=== PATIENT | male | born 1945 | race Caucasian/White ===

== ENCOUNTER 2017-06-24 07:35 | Outpatient (CLI) | payer MEDICARE ==
--- OUTSIDE RECORDS SUMMARY | 2017-06-24 07:38 | XMS | Clinical Summary ---
:1945 Author Organization [facility] Address [address] [place] [address] Phone Care Team Providers Name Role Phone Rancho Parekh Primary Care Provider tel Allergies No Known Allergies Current Medications Prescription Sig. Disp. Refills Start Date End Date Status pantoprazole (PROTONIX) 10/30/2016 Active 40 MG EC tablet valsartan (DIOVAN) 160 MG 11/02/2016 Active tablet JANUVIA 100 mg tablet 10/15/2016 Active carvedilol (COREG) 25 MG 11/02/2016 Active tablet metFORMIN (GLUCOPHAGE) Take 1,000 mg by Active 1,000 mg tablet mouth 2 (two) times a day with meals. aspirin (ECOTRIN) 81 MG Take 81 mg by mouth Active enteric coated tablet daily. HYDROcodone-acetaminophen Take by mouth every Active (HYCET) 2.5-108.3 mg/5 mL 6 (six) hours as solution needed for moderate pain. acetaminophen (TYLENOL) Take 500 mg by Active 500 MG tablet mouth every 6 (six) hours as needed for mild pain. Active Problems Problem Noted Date H/O esophagectomy 02/12/2017 Acute postoperative pain 02/12/2017 Postoperative anemia due to acute blood loss 02/12/2017 Esophageal cancer 02/11/2017 Encounters Date Type Specialty Care Team Description 03/26/2017 Office Visit Cardiothoracic Surgery Cuco Chaidez, Surgery follow-up MD examination (Primary Dx) from Last 3 Months Family History Medical History Relation Name Comments Esophageal cancer Brother Lung cancer Brother Heart disease Mother Relation Name Status Comments Brother Brother Mother Social History Tobacco Use Types Packs/Day Years Used Date Former Smoker Cigarettes 2 42 Quit: 11/07/2001 Smokeless Tobacco: Former User Quit: 10/24/2016 Alcohol Use Drinks/Week oz/Week Comments No Sex Assigned at Date Recorded Not on file Last Filed Vital Signs Vital Sign Reading Time Taken Blood Pressure 143/68 03/26/2017 11:13 AM CDT Pulse 65 03/26/2017 11:13 AM CDT Temperature 37.1 C (98.7 F) 03/26/2017 11:13 AM CDT Respiratory Rate 18 03/26/2017 11:13 AM CDT Oxygen Saturation 97% 03/26/2017 11:13 AM CDT Inhaled Oxygen Concentration - - Weight 100 kg (220 lb 8 oz) 03/26/2017 11:13 AM CDT Height 182.9 cm (6') 03/26/2017 11:13 AM CDT Body Mass Index 29.91 03/26/2017 11:13 AM CDT Plan of Treatment Health Maintenance Due Date Last Done Comments FOOT EXAM 1954 OPHTHALMOLOGY EXAM 1954 COLONOSCOPY 1994 ZOSTER VACCINE 2004 PNEUMOCOCCAL POLYSACCHARIDE VACCINE AGE 65 AND OVER 2009 PNEUMOCOCCAL-13 2009 INFLUENZA VACCINE 04/30/2017 Implants Implanted Type Area Hoop Rolls Operator Device Expiration Model / Identifier Date Serial / Lot Matrix Hmstc Floseal 10ml W/ Humn F2 - [id number] Surgical N/A: N/A VILLATORO 07/30/2018 [id number] / Implanted:Qty: 1 on 02/11/2017 by Cuco Chaidez MD Implants; BIOSCIENCE / Expanders; Extenders; Surgical Wires Chamber Sgl Saud Dry Suct 1wy Vlv Adlt Pedi - [id number] Surgical N/A: N/A TELEFLEX MEDICAL S 1100 [id number] / Implanted:02/11/2017 (Quantity not on file) Implants; / Expanders; Extenders; Surgical Wires Results Not on filefrom Last 3 Months Insurance Payer Benefit Plan / Group Subscriber ID Type Phone Address MEDICARE MEDICARE PART A AND B [id number] Medicare [place], [place] A[employer]NA [employer] OF [id number] Source MDx Home: [id number] [facility] [phone] [place] [phone]
[2017-06-24 08:06] LABS: Calc. Creatinine Clearance 0 mL/min (70-130); Estimated GFR-MDRD Greater than 90
--- NOTE | 2017-06-24 08:51 | CT ---
CT OF THE CHEST WITH CONTRAST: Date: 06/24/17 COMPARISON: None. HISTORY: Esophageal cancer, status post resection and chemotherapy. TECHNIQUE: Multiple contiguous axial images were obtained in a CT of the chest with contrast. Coronal reformats were performed. FINDINGS: Postsurgical changes are seen from distal esophageal resection and gastric pull-up. No hilar or medi astinal lymphadenopathy are seen. The heart is normal in size without focal cardiac abnormality. There are tree-in-bud opacities in the left lower lobe which may represent an infectious infiltrate or aspiration. No other nodules are seen. No pleural effusion or pneumothorax present. Degenerative changes are seen in the spine. No suspicious osseous lesions are identified. A hypodens ity in the left kidney likely represents a cyst. The other visualized subdiaphragmatic structures ar e unremarkable. The chest wall soft tissues are unremarkable. IMPRESSION: 1. Postsurgical changes from removal of the distal esophagus without evidence of recurrent or metas tatic disease. 2. There are areas of tree-in-bud opacity in the left lower lobe which may represent an acute infil trate or aspiration. POS: [facility]
[2017-06-24] MEDS ORDERED: Iopamidol 370 76% 100 ML VIAL ONE (13:41)
== END 2017-06-24 07:36 | disposition home or self-care (01) ==
LOC: CT 07:35
PROVIDERS: ATTEND Internal Medicine Hematology & Oncology
DX: C15.5 Malignant neoplasm of lower third of esophagus (principal); Z90.49 Acquired absence of other specified parts of digestive tract; R91.8 Other nonspecific abnormal finding of lung field; Z98.890 Other specified postprocedural states
CPT/HCPCS: 36415; 71260; 82565

== ENCOUNTER 2017-08-30 14:48 | Inpatient (IN) | payer MEDICARE ==
[2017-08-30 15:27] LABS: Hematocrit 38.7 % (42.0-52.0); Mean Platelet Volume 6.6 fL (7.4-10.4); Red Blood Cell (RBC) Count 4.16 mill/uL (4.70-6.10)
--- NOTE | 2017-08-30 15:40 | RAD ---
PORTABLE AP CHEST XRAY: DATE: 08/30/17. HISTORY: Cough. COMPARISON: 11/08/16. FINDINGS: Cardiac silhouette and pulmonary vasculature are within normal limits. Left subclavian MediPort cath eter has been removed. The lungs are clear on today's exam. Vascular calcification is seen in the t horacic aorta. There has been no other interval change. IMPRESSION: No acute cardiopulmonary process. POS: [facility]
[2017-08-30 15:44] LABS: Band 23 % (5-11); Neutrophil 37 % (42-75); Ovalocytes SLIGHT = 2-5 cells (100X) (0-1/hpf); Polychromasia SLIGHT = 2-3 cells (100X) (0-2/hpf); Reactive Lymphocytes 5 % (0-10)
[2017-08-30 15:50] LABS: ALT (SGPT) 14 U/L (8-55); AST (SGOT) 13 U/L (5-34); Alkaline Phosphatase 90 U/L (40-150); Anion Gap 11 mmol/L (10-20); BUN (Urea Nitrogen) 20 mg/dL (8.4-25.7); Bilirubin, Total 0.4 mg/dL (0.2-1.2); Calc. Creatinine Clearance 0 mL/min (70-130); Calcium 10.3 mg/dL (7.8-10.44); Carbon Dioxide 24 mmol/L (23-31); Chloride 106 mmol/L (98-107); Estimated GFR-MDRD 45; Globulin 3.1 g/dL (2.4-3.5); Protein, Total 6.8 g/dL (5.8-8.1)
[2017-08-30 15:55] LABS: Troponin I 0.012 ng/mL (< 0.028)
[2017-08-30 16:25] LABS: Lactic Acid - Sepsis 1.7 mmol/L (0.5-2.2)
[2017-08-30 16:47] LABS: Bilirubin Small (Negative); Blood, Urine Negative (Negative); Glucose, Urine (Dipstick) Negative (Negative); Ketone, Urine Trace mg/dL (Negative); Nitrite Negative (Negative); Protein, Urine (Dipstick) 30 mg/dL (Neg-Trace); Urobilinogen 0.2 mg/dL (0.2-1.0)
[2017-08-30 16:49] LABS: Bacteria/HPF None Seen HPF (None Seen); RBC/HPF 0-3 HPF (0-3)
[2017-08-30 16:58] LABS: Hyaline Casts/LPF 7-10 HYALINE CAST LPF (0-3 Hyaline)
[2017-08-30 16:59] LABS: Transitional Epithelial 0-3 HPF (0-3)
[2017-08-30] MEDS ORDERED: Acetaminophen 650 MG Suppository PR PRN (18:03)
[2017-08-30] MEDS ORDERED: Acetaminophen 325 MG TAB PO PRN (18:03)
[2017-08-30] MEDS ORDERED: Dextrose 50% Abboject 50 ML SYRINGE SLOW IVP PRN (18:05)
[2017-08-30] MEDS ORDERED: Dextrose 5% in Water 1,000 ML IV PRN (18:05)
[2017-08-30] MEDS ORDERED: HumaLOG 300 UNITS/3 ML VIAL SC PRN (18:05)
--- NOTE | 2017-08-30 18:37 | HP ---
PRIMARY CARE PHYSICIAN: Rancho Parekh M.D. CHIEF COMPLAINT: Cough, fever, diarrhea. HISTORY OF PRESENT ILLNESS: Mr. Carter is a pleasant 72-year-old gentleman who was seen at [facility] on 08/30/2017. He reports that over the last week, he has had diarrhea. He reports multiple bowel movements, watery . He denies any blood in the stool. He also reportedly had fevers. He was started on Tamiflu 2 day s ago. He reports having cough that is productive of small amount of sputum over the last week. He reports body aches. Tamiflu did not help with his symptoms. He was seen by his primary care physician today. He was fou nd to have a temperature of 102 degrees Fahrenheit and was therefore sent to the emergency room. He was also reportedly hypotensive at his primary care physician's office. REVIEW OF SYSTEMS: The following complete review of systems was negative, unless otherwise mentioned in the HPI or below: Constitutional: Weight loss or gain, sense of well-being, ability to conduct usual activities, exerc ise tolerance. Skin/Breast: Rash, itching, changes in hair growth or loss, nail changes, breast lumps, tenderness, swelling, nipple discharge. Eyes: Vision, double vision, tearing, blind spots, pain. ENT/Mouth: Headaches (location, time of onset, duration, precipitating factors), vertigo, lightheade dness, injury. Vision, double vision, tearing, blind spots, pain, nose bleeding, colds, obstruction, discharge, dental difficulties, gingival bleeding, dentures, neck stiffness, pain, tenderness, mackenzie s in thyroid or other areas. Cardiovascular: Precordial pain, substernal distress, palpitations, syncope, dyspnea on exertion, or thopnea, nocturnal paroxysmal dyspnea, edema, cyanosis, hypertension, heart murmurs, varicosities, ph lebitis, claudication. Respiratory: Pain, shortness of breath, wheezing, stridor, cough, hemoptysis, fever or night sweats. Gastrointestinal: Poor appetite, dysphagia, indigestion, abdominal pain, heartburn, eructation, naus ea, vomiting, hematemesis, jaundice, constipation, or diarrhea, abnormal stools (boris-colored, tarry, bloody, greasy, foul smelling), flatulence, hemorrhoids, recent changes in bowel habits. Genitourinary: Urgency, frequency, dysuria, nocturia, hematuria, polyuria, oliguria, unusual (or dg nge in) color of urine, stones, hesitancy, change in size of stream, dribbling, acute retention or in continence, libido, potency. Musculoskeletal: Pain, swelling, redness or heat of muscles or joints, limitation, of motion, muscul ar weakness, atrophy, cramps. Neurologic/Psychiatric: Convulsions, paralyses, tremor, incoordination, parasthesias, difficulties w ith memory of speech, sensory or motor disturbances, or muscular coordination (ataxia, tremor), emoti onal problems, anxiety, depression, previous psychiatric care, unusual perceptions, hallucinations. Allergy/Immunologic: Skin rash, anemia, bleeding tendency, polydipsia, polyuria, intolerance to heat or cold. PAST MEDICAL HISTORY: Significant for coronary artery disease, dyslipidemia, osteoarthritis, esopha geal cancer status post chemotherapy, status post radiation therapy, status post surgery, myocardial infarction, diabetes mellitus type 2, hypertension, and hemorrhagic cerebrovascular accident, iron de ficiency anemia, and nephrolithiasis. PAST SURGICAL HISTORY: Significant for appendectomy, tonsillectomy, and esophagectomy and left hand surgery. FAMILY HISTORY: Significant for malignancy in his brothers. SOCIAL HISTORY: The patient is an ex-smoker. He denies alcohol use or recreational drug use. ALLERGIES: No known drug allergies. CURRENT MEDICATIONS: Include iron 325 mg daily, valsartan 160 mg daily, carvedilol 50 mg 2 times a d ay, pantoprazole 40 mg daily, aspirin 81 mg daily, Januvia 100 mg daily, metformin 1000 mg 2 times a day, fish oil 1000 mg daily, multivitamins 1 tablet daily, and Tylenol extra strength p.r.n. PHYSICAL EXAMINATION: GENERAL: Mr. Carter is awake and alert, not in acute distress. VITAL SIGNS: Blood pressure is 112/54, pulse is 61, he is breathing at rate of 21 and saturating 95% on room air. He is afebrile. EYES: No scleral icterus. No conjunctival pallor. ENT: Dry mucosal membranes, no oropharyngeal erythema or exudates. NECK: Supple, nontender, normal range of movement, trachea is midline. RESPIRATORY: Accessory muscles of breathing are not active. Chest wall movements are symmetric bila terally. LUNGS: Clear to auscultation, without wheeze, rhonchi or crepitations. CARDIOVASCULAR: S1 and S2 are heard, regular. LUNGS: Peripheral pulses palpable. No carotid bruit, no pericardial rub. ABDOMEN: Soft, nontender, bowel sounds heard, no hepatomegaly, no splenomegaly. SKIN: No rashes or subcutaneous nodules. Decreased skin turgor. NEUROLOGIC: Cranial nerves II-XII are intact. Deep tendon reflexes are 2+. MUSCULOSKELETAL: Power is 5/5 in all 4 extremities. Normal range of movement at all major extremity joints. PSYCHIATRIC: Normal mood, normal affect, patient is oriented to person, place, and time. LABORATORY DATA: Mr. Carter's labs and investigations were reviewed. I reviewed his electrocardiog natalya, which shows normal sinus rhythm, no ST changes to suggest an acute coronary syndrome. I also re viewed his chest x-ray, which does not show any pulmonary infiltrates. Laboratory investigation show leukopenia with 4000 white cells, normocytic anemia with hemoglobin 12.7, normal platelet count, juan vated creatinine of 1.53, otherwise unremarkable comprehensive metabolic profile, mildly elevated BNP of 104 and normal troponin I. Urinalysis is positive for protein, trace ketones, small amount of bi lirubin and trace leukocyte esterase. ASSESSMENT AND PLAN: Mr. Carter is a pleasant 72-year-old gentleman who was seen at [facility] on 08/30/2017. His problem list includes: 1. Sepsis: Temperature of 102 degrees Fahrenheit as well as elevated respiratory rate, and suspecte d source of infection in the respiratory tract, Mr. Carter meets the criteria for sepsis. He will b e admitted to the hospital for further management. 2. Bronchitis: Mr. Carter's chest x-ray does not show any infiltrates. He does report having a co ugh as well as fevers. I will start him on empiric antibiotics in the form of levofloxacin. I will check blood cultures. 3. Dehydration: He is clinically dehydrated. I will provide intravenous fluid resuscitation. 4. Diarrhea: He reports ongoing diarrhea. We will check stool studies as well as Clostridium diffi cile screen. 5. Acute kidney injury: Likely prerenal due to diarrhea. We will provide hydration and recheck his creatinine level. 6. Diabetes mellitus: Start Accu-Cheks and insulin sliding scale. Hold metformin because of renal insufficiency. 7. Hypertension: Hold ARB. Monitor vital signs, titrate antihypertensives as needed. 8. Coronary artery disease: Appears to be stable. 9. Esophageal cancer. Appears to be stable. Many thanks for allowing me to participate in your patient's care. Please feel free to contact me wi th any questions or concerns. LEVEL OF RISK: High. LEVEL OF COMPLEXITY: High.
[2017-08-30 19:29] VITALS: BMI 27.7
[2017-08-30] MEDS ORDERED: Ondansetron HCl/PF 4 MG/2 ML Vial IVP PRN (19:29)
[2017-08-30] MEDS ORDERED: Ondansetron ODT 4 MG TAB SL PRN (19:29)
[2017-08-30] MEDS ORDERED: Acetaminophen 500 MG TAB PO PRN (20:14)
[2017-08-30] MEDS: Oseltamivir 75 MG CAP PO SCH (20:58)
[2017-08-30] MEDS: metFORMIN 500 MG TAB PO SCH (20:58)
[2017-08-30] MEDS: Carvedilol 25 MG TAB PO SCH (20:59)
[2017-08-30] MEDS ORDERED: Heparin 5,000 UNITS/ML VIAL SC SCH (21:00)
[2017-08-30] MEDS: Sodium Chloride 0.9% 1,000 ML IV SCH (22:07)
[2017-08-31 05:25] LABS: Anion Gap 9 mmol/L (10-20); BUN (Urea Nitrogen) 13 mg/dL (8.4-25.7); Calc. Creatinine Clearance 95 mL/min (70-130); Calcium 9.8 mg/dL (7.8-10.44); Carbon Dioxide 24 mmol/L (23-31); Chloride 110 mmol/L (98-107); Estimated GFR-MDRD 82
[2017-08-31 06:27] LABS: Band 11 % (5-11); Hematocrit 33.7 % (42.0-52.0); Mean Platelet Volume 6.3 fL (7.4-10.4); Neutrophil 58 % (42-75); Reactive Lymphocytes 3 % (0-10); Red Blood Cell (RBC) Count 3.64 mill/uL (4.70-6.10); White Blood Cell (WBC) Count 2.7 thou/uL (4.8-10.8)
[2017-08-31] MEDS: Diabetic Tussin DM 5 ML UDCUP PO PRN ×2 (07:10→21:45)
[2017-08-31] MEDS: Sodium Chloride 0.9% 1,000 ML IV SCH ×2 (09:06→20:21)
[2017-08-31] MEDS: Fish Oil 1,000 MG CAP PO SCH (09:08)
[2017-08-31] MEDS: Valsartan 80 MG TAB PO SCH (09:09)
[2017-08-31] MEDS: Alogliptin Benzoate 25 MG TABLET PO SCH (09:09)
[2017-08-31] MEDS: metFORMIN 500 MG TAB PO SCH ×2 (09:10→20:22)
[2017-08-31] MEDS: Ferrous Sulfate 325 MG TAB PO SCH (09:10)
[2017-08-31] MEDS: Carvedilol 25 MG TAB PO SCH ×2 (09:10→20:22)
[2017-08-31] MEDS: Multivit, Therapeutic 1 TAB PO SCH (09:11)
[2017-08-31] MEDS: Oseltamivir 75 MG CAP PO SCH ×2 (09:11→20:21)
[2017-08-31] MEDS ORDERED: Potassium Chloride 20 MEQ TAB PO SCH (10:00)
--- NOTE | 2017-08-31 10:07 | PDOC.EVN ---
Event Note - Event Note Event Note: Discussed with case management. Pt had NSVT today AM. has ongoing diarrhea, likely the cause of sepsis. Pt meets criteria for inpatient, will change status to inpatient.
--- NOTE | 2017-08-31 11:16 | PDOC.PN ---
- Subjective Encounter Start Date: 08/31/17 Encounter Start Time: 07:40 Pt seen for followup re: hyponatremia. Denies chest pain, shortness of breath, fevers or chills. Continues to complain of a sensation of "high" after eating. - Objective MAR Reviewed: Yes Result Diagrams: 08/31/17 04:46 08/31/17 04:46 EKG Reviewed by me: Yes (Tele: NSR) Dx/Plan - Plan * . Review of Systems - Review of Systems Constitutional: Weakness. negative: Fever, Chills, Sweats, Malaise Respiratory: negative: Cough, Dry, Shortness of Breath, Hemoptysis, SOB with Excertion, Pleuritic Pain, Sputum, Wheezing Cardiovascular: negative: Chest Pain, Palpitations, Orthopnea, Paroxysmal Noc. Dyspnea, Edema, Light Headedness Gastrointestinal: Nausea. negative: Vomiting, Abdominal Pain, Diarrhea, Constipation, Melena, Hematochezia Genitourinary: negative: Dysuria, Frequency, Incontinence, Hematuria, Retention - Medications/Allergies Allergies/Adverse Reactions: Allergies Allergy/AdvReac Type Severity Reaction Status Date / Time No Known Drug Allergies Allergy Verified 08/30/17 19:47 Medications: Current Medications Acetaminophen (Tylenol) 650 mg PO Q4H PRN PRN Reason: Headache/Fever or Pain Acetaminophen (Tylenol) 650 mg HI Q4H PRN PRN Reason: Headache/Fever or Pain Acetaminophen (Tylenol) 1,000 mg PO Q6H PRN PRN Reason: Pain Alogliptin Benzoate (Alogliptin) 25 mg PO DAILY [facility] Last Admin: 08/31/17 09:09 Dose: 25 mg Aspirin (Aspirin Chewable) 81 mg PO DAILY [facility] Last Admin: 08/31/17 09:10 Dose: 81 mg Carvedilol (Coreg) 50 mg PO BID [facility] Last Admin: 08/31/17 09:10 Dose: 50 mg Dextrose/Water (Dextrose 50%) 25 gm SLOW IVP PRN PRN PRN Reason: Hypoglycemia Ferrous Sulfate (Feosol) 325 mg PO QAM [facility] Last Admin: 08/31/17 09:10 Dose: 325 mg Fish Oil (Fish Oil) 1,000 mg PO DAILY [facility] Last Admin: 08/31/17 09:08 Dose: 1,000 mg Glucagon (Glucagon) 1 mg IM PRN PRN PRN Reason: Hypoglycemia Guaifenesin/Dextromethorphan (Diabetic Tussin Dm) 5 ml PO Q4H PRN PRN Reason: Cough Last Admin: 08/31/17 07:10 Dose: 5 ml Dextrose/Water (D5w) 1,000 mls @ 0 mls/hr IV .Q0M PRN; As Directed PRN Reason: Hypoglycemia Sodium Chloride (Normal Saline 0.9%) 1,000 mls @ 100 mls/hr IV .Q10H [facility] Last Admin: 08/31/17 09:06 Dose: 1,000 mls Levofloxacin 750 mg/ Device 150 mls @ 100 mls/hr IVPB 2100 OLIVIA Insulin Human Lispro (Humalog) 0 units SC .MILD SLIDING SCALE PRN PRN Reason: Mild Correctional Scale Metformin HCl (Glucophage) 1,000 mg PO BID [facility] Last Admin: 08/31/17 09:10 Dose: 1,000 mg Multivitamins (Theragran) 1 tab PO DAILY [facility] Last Admin: 08/31/17 09:11 Dose: 1 tab Oseltamivir Phosphate (Tamiflu) 75 mg PO BID [facility] Last Admin: 08/31/17 09:11 Dose: 75 mg Pantoprazole Sodium (Protonix) 40 mg PO BID [facility] Last Admin: 08/31/17 09:11 Dose: 40 mg Potassium Chloride (K-Dur) 40 meq PO 1000 [facility] Stop: 08/31/17 12:00 Last Admin: 08/31/17 11:04 Dose: 40 meq Sodium Chloride (Flush - Normal Saline) 10 ml IVF Q12HR [facility] Last Admin: 08/31/17 09:11 Dose: 10 ml Sodium Chloride (Flush - Normal Saline) 10 ml IVF PRN PRN PRN Reason: Saline Flush Valsartan (Diovan) 160 mg PO DAILY [facility] Last Admin: 08/31/17 09:09 Dose: 160 mg
--- NOTE | 2017-08-31 11:19 | PDOC.PN ---
- Subjective Encounter Start Date: 08/31/17 Encounter Start Time: 07:40 Pt seen for followup re: V-tach. Denies chest pain, shortness of breath, fevers or chills. - Objective MAR Reviewed: Yes Result Diagrams: 08/31/17 04:46 08/31/17 04:46 EKG Reviewed by me: Yes (NSR, NSVT) Phys Exam - Physical Examination Constitutional: NAD HEENT: PERRLA, moist MMs, sclera anicteric, oral pharynx no lesions Neck: supple Respiratory: no wheezing, no rales, no rhonchi, clear to auscultation bilateral Cardiovascular: RRR, no rub Gastrointestinal: soft, non-tender, no distention, positive bowel sounds Musculoskeletal: pulses present Neurological: moves all 4 limbs Lymphatic: no nodes Psychiatric: normal affect, A&O x 3 Skin: no rash, normal turgor, cap refill <2 seconds Dx/Plan (1) NSVT (nonsustained ventricular tachycardia) Code(s): I47.2 - VENTRICULAR TACHYCARDIA Status: Acute (2) Diarrhea Code(s): R19.7 - DIARRHEA, UNSPECIFIED Status: Acute (3) Campylobacter diarrhea Code(s): A04.5 - CAMPYLOBACTER ENTERITIS Status: Acute (4) Generalized weakness Code(s): R53.1 - WEAKNESS Status: Acute (5) Hypertension Code(s): I10 - ESSENTIAL (PRIMARY) HYPERTENSION Status: Chronic (6) CAD (coronary artery disease) Code(s): I25.10 - ATHSCL HEART DISEASE OF [place] CORONARY ARTERY W/O ANG PCTRS Status: Chronic Comment: Stable (7) Diabetes type 2, controlled Code(s): E11.9 - TYPE 2 DIABETES MELLITUS WITHOUT COMPLICATIONS Status: Chronic (8) Sepsis Code(s): A41.9 - SEPSIS, UNSPECIFIED ORGANISM Status: Resolved - Plan continue antibiotics, PT/OT, out of bed/ambulate * . Check magnesium, give potassium, consult cardiology re: NSVT. Continue levofloxacin (elderly pt with Camyplobacter enteritis, also has suspected URTI. Ambulate pt. Discussed with case management. Given NSVT as well as multiple medical comorbidities, paytient acnnot be discharged home safely. Change pt's admission status to in-patient. Review of Systems - Review of Systems Constitutional: Weakness. negative: Fever, Chills, Sweats, Malaise Respiratory: Cough. negative: Dry, Shortness of Breath, Hemoptysis, SOB with Excertion, Pleuritic Pain, Sputum, Wheezing Cardiovascular: negative: Chest Pain, Palpitations, Orthopnea, Paroxysmal Noc. Dyspnea, Edema, Light Headedness Gastrointestinal: Diarrhea. negative: Nausea, Vomiting, Abdominal Pain, Constipation, Melena, Hematochezia Genitourinary: negative: Dysuria, Frequency, Incontinence, Hematuria, Retention - Medications/Allergies Allergies/Adverse Reactions: Allergies Allergy/AdvReac Type Severity Reaction Status Date / Time No Known Drug Allergies Allergy Verified 08/30/17 19:47 Medications: Current Medications Acetaminophen (Tylenol) 650 mg PO Q4H PRN PRN Reason: Headache/Fever or Pain Acetaminophen (Tylenol) 650 mg CO Q4H PRN PRN Reason: Headache/Fever or Pain Acetaminophen (Tylenol) 1,000 mg PO Q6H PRN PRN Reason: Pain Alogliptin Benzoate (Alogliptin) 25 mg PO DAILY [facility] Last Admin: 08/31/17 09:09 Dose: 25 mg Aspirin (Aspirin Chewable) 81 mg PO DAILY [facility] Last Admin: 08/31/17 09:10 Dose: 81 mg Carvedilol (Coreg) 50 mg PO BID [facility] Last Admin: 08/31/17 09:10 Dose: 50 mg Dextrose/Water (Dextrose 50%) 25 gm SLOW IVP PRN PRN PRN Reason: Hypoglycemia Ferrous Sulfate (Feosol) 325 mg PO QAM [facility] Last Admin: 08/31/17 09:10 Dose: 325 mg Fish Oil (Fish Oil) 1,000 mg PO DAILY [facility] Last Admin: 08/31/17 09:08 Dose: 1,000 mg Glucagon (Glucagon) 1 mg IM PRN PRN PRN Reason: Hypoglycemia Guaifenesin/Dextromethorphan (Diabetic Tussin Dm) 5 ml PO Q4H PRN PRN Reason: Cough Last Admin: 08/31/17 07:10 Dose: 5 ml Dextrose/Water (D5w) 1,000 mls @ 0 mls/hr IV .Q0M PRN; As Directed PRN Reason: Hypoglycemia Sodium Chloride (Normal Saline 0.9%) 1,000 mls @ 100 mls/hr IV .Q10H [facility] Last Admin: 08/31/17 09:06 Dose: 1,000 mls Levofloxacin 750 mg/ Device 150 mls @ 100 mls/hr IVPB 2100 [facility] Insulin Human Lispro (Humalog) 0 units SC .MILD SLIDING SCALE PRN PRN Reason: Mild Correctional Scale Metformin HCl (Glucophage) 1,000 mg PO BID [facility] Last Admin: 08/31/17 09:10 Dose: 1,000 mg Multivitamins (Theragran) 1 tab PO DAILY [facility] Last Admin: 08/31/17 09:11 Dose: 1 tab Oseltamivir Phosphate (Tamiflu) 75 mg PO BID [facility] Last Admin: 08/31/17 09:11 Dose: 75 mg Pantoprazole Sodium (Protonix) 40 mg PO BID [facility] Last Admin: 08/31/17 09:11 Dose: 40 mg Potassium Chloride (K-Dur) 40 meq PO 1000 [facility] Stop: 08/31/17 12:00 Last Admin: 08/31/17 11:04 Dose: 40 meq Sodium Chloride (Flush - Normal Saline) 10 ml IVF Q12HR [facility] Last Admin: 08/31/17 09:11 Dose: 10 ml Sodium Chloride (Flush - Normal Saline) 10 ml IVF PRN PRN PRN Reason: Saline Flush Valsartan (Diovan) 160 mg PO DAILY [facility] Last Admin: 08/31/17 09:09 Dose: 160 mg
--- NOTE | 2017-08-31 15:09 | CON ---
DATE OF CONSULTATION: 08/31/2017 REASON FOR CONSULTATION: Nonsustained VT. PRIMARY DIE TRY OUT WORKER: Dr. Tre Bojorquez. HISTORY OF PRESENT ILLNESS: Mr. Carter is a very pleasant 72-year-old gentleman with history of cor onary artery disease. He recently presented with persistent diarrhea in addition to weakness and fat igue. He was also found to be hypotensive at home with blood pressure in the 80s. He was seen and a dmitted and has also had fever up to 102. He had a 15-beat run of nonsustained VT, asymptomatic. From a coronary artery disease standpoint, he does have a history of a completely occluded circumflex artery, diagnosed in 2005. He has been treated medically. No syncope, presyncope, shortness of breath or other associated symptoms. PAST MEDICAL HISTORY: As above including hyperlipidemia, esophageal cancer status post chemotherapy (several months ago) in addition to radiation therapy, diabetes mellitus, hypertension, CVA and iron deficiency anemia. PAST SURGICAL HISTORY: Appendectomy, tonsillectomy and left hand surgery. SOCIAL HISTORY: No current tobacco or alcohol use. ALLERGIES: None. HOME MEDICATIONS: Include iron, valsartan, carvedilol, pantoprazole, aspirin, Januvia, metformin, mu ltivitamin and Tylenol. REVIEW OF SYSTEMS: A 10-point systems is reviewed and is as above, negative. PHYSICAL EXAMINATION: GENERAL: Patient is a pleasant male who is in no acute distress. The patient appears his stated age . VITAL SIGNS: Blood pressure 129/69, pulse 53 and temperature is 97.8. NEUROLOGIC: The patient is alert and oriented x3 with no focal neurologic deficits. HEENT: Sclerae without icterus. Mouth has moist mucous membranes with normal pallor. NECK: No JVD. Carotid upstroke brisk. No bruits bilaterally. LUNGS: Clear to auscultation with unlabored respirations. BACK: No scoliosis or kyphosis. CARDIAC: Regular rate and rhythm with normal S1 and S2. No S3 or S4 noted. No significant rubs, murmurs, thrills, or gallops noted throughout the precordium. PMI is not displa robbie. There is no parasternal heave. ABDOMEN: Soft, nontender, nondistended. No peritoneal signs present. No hepatosplenomegaly. No abnormal striae. EXTREMITIES: 2+ femoral and 2+ dorsalis pedis pulses. No cyanosis, clubbing, or edema. SKIN: No gross abnormalities. PERTINENT LABS: Hemoglobin 11.0, white blood cell count 2.7 and platelet count of 211. BUN 13, crea tinine 0.9 and magnesium level 1.7. IMPRESSION: 1. Nonsustained ventricular tachycardia. 2. Diarrhea. 3. Volume contraction. 4. Sepsis?. RECOMMENDATIONS: Nonsustained VT was asymptomatic. We will recommend an echo with Doppler to assess LV function. If LV function is at the lower limits of normal or normal, would continue with medical therapy. If his LVEF is less than 35%, would likely recommend EP consultation. This is likely due to scar. This may also be exacerbated by recent significant diarrhea with magnesium with lower limit s of normal. We would add 1 gram of magnesium. Otherwise, I have no further recommendations.
[2017-09-01] MEDS: Sodium Chloride 0.9% 1,000 ML IV SCH ×2 (09:35→18:24)
[2017-09-01] MEDS: Carvedilol 25 MG TAB PO SCH ×2 (09:37→20:29)
[2017-09-01] MEDS: Valsartan 80 MG TAB PO SCH (09:38)
[2017-09-01] MEDS: Alogliptin Benzoate 25 MG TABLET PO SCH (09:38)
[2017-09-01] MEDS: Multivit, Therapeutic 1 TAB PO SCH (09:38)
[2017-09-01] MEDS: metFORMIN 500 MG TAB PO SCH ×2 (09:38→20:30)
[2017-09-01] MEDS: Fish Oil 1,000 MG CAP PO SCH (09:38)
[2017-09-01] MEDS: Ferrous Sulfate 325 MG TAB PO SCH (09:38)
[2017-09-01] MEDS: Oseltamivir 75 MG CAP PO SCH ×2 (09:38→20:30)
[2017-09-01] MEDS ORDERED: Magnesium 2 GM/NS 0.9% 50 ML 2 GM in Premix Bag 1 BAG IVPB SCH (12:00)
--- NOTE | 2017-09-01 13:59 | PDOC.PN ---
- Subjective Encounter Start Date: 09/01/17 Encounter Start Time: 13:57 Mr. Carter was seen today in follow-up of diarrhea, and NSVT. He says he feels better, but had 5 episodes of watery diarrhea this morning. Yesterday he did not have any diarrhea. He continues to have a non-productive cough. - Objective MAR Reviewed: Yes Vital Signs & Weight: Vital Signs (12 hours) Temp Pulse Resp BP BP Pulse Ox 09/01/17 11:54 97.7 F 57 L 18 148/72 H 98 09/01/17 08:00 60 18 110/64 97 09/01/17 04:00 97.7 F 65 18 176/90 H 96 Weight Admit Weight 204 lb 11.2 oz Weight 203 lb 8 oz I&O: 08/31/17 09/01/17 09/02/17 06:59 06:59 06:59 Intake Total 2980 720 Output Total 1400 Balance 1580 720 Result Diagrams: 08/31/17 04:46 08/31/17 04:46 Additional Labs: Accuchecks 09/01/17 09/01/17 08/31/17 12:01 06:26 20:41 POC Glucose 124 H 124 H 96 08/31/17 16:57 POC Glucose 109 Phys Exam - Physical Examination HEENT: PERRLA Respiratory: no wheezing, no rales + occasional rhonchi Cardiovascular: RRR, no significant murmur Gastrointestinal: soft, non-tender, positive bowel sounds Musculoskeletal: no edema Dx/Plan (1) Hypomagnesemia Code(s): E83.42 - HYPOMAGNESEMIA Status: Acute (2) Campylobacter diarrhea Code(s): A04.5 - CAMPYLOBACTER ENTERITIS Status: Acute (3) NSVT (nonsustained ventricular tachycardia) Code(s): I47.2 - VENTRICULAR TACHYCARDIA Status: Acute (4) Diabetes type 2, controlled Code(s): E11.9 - TYPE 2 DIABETES MELLITUS WITHOUT COMPLICATIONS Status: Chronic (5) Hypertension Code(s): I10 - ESSENTIAL (PRIMARY) HYPERTENSION Status: Chronic - Plan * Diarrhea- due to Campylobacter- continue Levaquin- will also check a C. Diff screen, since the diarrhea re-started while on therapy * Hypomagnesemia- replace * NSVT- keep Mg2+ in normal limits, Echo results noted, he has a normal EF * Cough- ? viral bronchitis, should be self limiting * DM - Blood glucose is stable * HTN- blood pressure is slightly elevated- he is on his home medications- will monitor * Hopefully home tomorrow.
[2017-09-01] MEDS ORDERED: Guaifenesin DM 100-10/5 ML UDCUP PO PRN (18:45)
[2017-09-01] MEDS ORDERED: Temazepam 15 MG CAP PO PRN (19:20)
[2017-09-02] MEDS: Sodium Chloride 0.9% 1,000 ML IV SCH ×2 (05:32→15:39)
[2017-09-02 05:48] LABS: Anion Gap 9 mmol/L (10-20); BUN (Urea Nitrogen) Less than 4 mg/dL (8.4-25.7); Calc. Creatinine Clearance 123 mL/min (70-130); Carbon Dioxide 26 mmol/L (23-31); Chloride 110 mmol/L (98-107); Estimated GFR-MDRD Greater than 90; Magnesium 1.8 mg/dL (1.6-2.6)
[2017-09-02] MEDS: Alogliptin Benzoate 25 MG TABLET PO SCH (08:46)
[2017-09-02] MEDS: Ferrous Sulfate 325 MG TAB PO SCH (08:46)
[2017-09-02] MEDS: metFORMIN 500 MG TAB PO SCH ×2 (08:46→20:05)
[2017-09-02] MEDS: Valsartan 80 MG TAB PO SCH (08:47)
[2017-09-02] MEDS: Carvedilol 25 MG TAB PO SCH ×2 (08:47→20:05)
[2017-09-02] MEDS: Oseltamivir 75 MG CAP PO SCH ×2 (08:47→20:05)
[2017-09-02] MEDS: Fish Oil 1,000 MG CAP PO SCH (08:47)
[2017-09-02] MEDS: Multivit, Therapeutic 1 TAB PO SCH (08:47)
--- NOTE | 2017-09-02 11:20 | PDOC.PN ---
- Subjective Encounter Start Date: 09/02/17 Encounter Start Time: 11:18 Mr. Crater was seen today in follow-up of Campylobacter diarrhea, and NSVT. He does not have any complaints this morning. He says his stool was a little more formed, but still loose. He denies abdominal pain. - Objective MAR Reviewed: Yes Vital Signs & Weight: Vital Signs (12 hours) Temp Pulse Resp BP BP Pulse Ox 09/02/17 08:40 97.6 F 56 L 16 153/74 H 97 09/02/17 04:00 98.0 F 64 18 161/82 H 94 L Weight Admit Weight 204 lb 11.2 oz Weight 208 lb 5 oz I&O: 09/01/17 09/02/17 09/03/17 06:59 06:59 06:59 Intake Total 2980 3940 Output Total 1400 2425 Balance 1580 1515 Result Diagrams: 08/31/17 04:46 09/02/17 04:50 Additional Labs: Accuchecks 09/02/17 09/02/17 09/01/17 10:51 06:16 20:07 POC Glucose 115 H 102 97 09/01/17 09/01/17 17:23 12:01 POC Glucose 108 124 H Phys Exam - Physical Examination HEENT: PERRLA Respiratory: no wheezing, no rales, no rhonchi, clear to auscultation bilateral Cardiovascular: RRR, no significant murmur, no rub Gastrointestinal: soft, non-tender, positive bowel sounds Musculoskeletal: no edema Dx/Plan (1) Campylobacter diarrhea Code(s): A04.5 - CAMPYLOBACTER ENTERITIS Status: Acute (2) Hypomagnesemia Code(s): E83.42 - HYPOMAGNESEMIA Status: Acute (3) NSVT (nonsustained ventricular tachycardia) Code(s): I47.2 - VENTRICULAR TACHYCARDIA Status: Acute (4) Diabetes type 2, controlled Code(s): E11.9 - TYPE 2 DIABETES MELLITUS WITHOUT COMPLICATIONS Status: Chronic (5) Hypertension Code(s): I10 - ESSENTIAL (PRIMARY) HYPERTENSION Status: Chronic - Plan * Campylobacter Diarrhea- slowly improving * Hypomagnesemia- improved * NSVT- Dr. Bojorquez will discuss with EP how to proceed * DM- blood glucose is stable * HTN- blood pressure is a bit labile- will monitor.
[2017-09-03] MEDS: Sodium Chloride 0.9% 1,000 ML IV SCH ×2 (03:05→12:57)
--- NOTE | 2017-09-03 06:06 | CON ---
DATE OF CONSULTATION: 09/02/2017 ELECTROPHYSIOLOGY CONSULTATION REPORT REFERRING PHYSICIAN: Tre Bojorquez M.D. I am seeing Mr. Carter at our [facility] telemetry floor as an electrophysiology homemaking rehabilitation consultant . His problems are: 1. Nonsustained ventricular tachycardia on telemetry, asymptomatic. 2. A. History of coronary artery disease with myocardial myopathy and left heart catheterizat ion in 2006, LVEF of 45% to 50%, completely occluded distal circumflex is seen, currently symptomatic . B. A 2D echo from 08/31/2017 reveals normal LVEF. 3. Current presentation with diarrhea, viral symptoms, negative for flu. 4. Prior history of esophageal cancer requiring surgery and resection and radiation therapy. 5. Prior history of cerebrovascular accident. 6. Coronary artery risk factors. A. Diabetes. B. Hypertension. ALLERGIES: None. MEDICATIONS AT HOME: Include iron, valsartan, carvedilol, pantoprazole, aspirin, Januvia, metformin, multivitamin, Tylenol. SUBJECTIVE: Mr. Carter is somewhat of a poor historian and his gives me good history. It seem s that he presented with diarrhea, weakness, and fatigue. His blood pressure was running in the 80s. He did not completely pass out. He has had fevers up to 102. He had flu-like symptoms but was fou nd negative for serology. While on monitor, he had a 15-beat nonsustained VT. He was not aware of t hat episode. He does not pass out, although back in September prior to his cancer diagnosis, he was no kamaljit to have a syncopal spell that was thought to be secondary hypertension at that time. Since then, there are no recurrences. He denies angina, no PND, orthopnea, or lower extremity edema. At this t nancy, no fever, chills or cough. No stroke-like symptoms at this point, although initially had fever like symptoms. REVIEW OF SYSTEMS: Twelve-point review of systems otherwise unremarkable. PAST MEDICAL HISTORY: As above. SOCIAL HISTORY: The patient is an ex-smoker, denies EtOH or drug abuse. FAMILY HISTORY: Noncontributory. PAST SURGICAL HISTORY: Significant for appendectomy, tonsillectomy, esophagectomy and left hand surg yoli. FAMILY HISTORY: Significant for of the brothers. OBJECTIVE DATA: VITAL SIGNS: Blood pressure is 125/67, heart rate 93, respirations 18, temperature 97.8 degrees Fahr enheit. GENERAL: He is alert and oriented man in no apparent distress. NECK: Supple. Jugular veins are not distended. CHEST: Coarse without crackles. CARDIOVASCULAR: Heart sounds are regular to rate and rhythm. No murmur, rub or gallop. ABDOMEN: Benign. Bowel sounds positive. EXTREMITIES: Lower extremities without edema, clubbing or cyanosis. DATABASE: Telemetry strips reviewed and reveals a 15 beats of nonsustained ventricular tachyarrhythm ia run, it appears to be an isolated event. Otherwise, sinus rhythm, occasional sinus bradycardia is seen. Heart rates in the 50s to 60s noted. The baseline EKG reveals sinus rhythm, rate of 64 beats per minute, no significant ST-T changes, narrow QRS, normal QT interval at 380, normal QTC at 389 mi lliseconds is observed. LABORATORY DATA: White count is 2.7, hemoglobin is 11, and platelet count is 211. Sodium 141, potas sium 3.7, BUN is 9, creatinine is 0.7, glucose of 115. ASSESSMENT AND PLAN: Mr. Carter is a pleasant 72-year-old man with prior history of coronary artery disease, mild left ventricular dysfunction in the past but echo suggestive of normalized left ventri cular ejection fraction. He is presenting with watery diarrhea episodes, viral syndrome, although ne gative for definite influenza. He has been noted to have a nonsustained VT episodes. Hence, the normal LVEF and no ongoing ischemic like symptoms, I think his prognosis is benign. Evan nued carvedilol is advised has already initiated. He could be considered for outpatient stress testi if Dr. Bojorquez agrees with that. Etiology of his nonsustained ventricular arrhythmias at this point unclear, likely idiopathic althoug h the history of thoracic radiation could play a role in proarrhythmic scar formation in the LV. Aga in, has the preserved LV function and lack of symptoms of sustained tachyarrhythmia at this point in observation and beta-rhonda therapy is advised. We will discuss with Dr. Bojorquez and family.
[2017-09-03] MEDS: Fish Oil 1,000 MG CAP PO SCH (08:03)
[2017-09-03] MEDS: Oseltamivir 75 MG CAP PO SCH (08:03)
[2017-09-03] MEDS: Multivit, Therapeutic 1 TAB PO SCH (08:04)
[2017-09-03] MEDS: metFORMIN 500 MG TAB PO SCH (08:04)
[2017-09-03] MEDS: Ferrous Sulfate 325 MG TAB PO SCH (08:04)
[2017-09-03] MEDS: Alogliptin Benzoate 25 MG TABLET PO SCH (08:04)
[2017-09-03] MEDS: Carvedilol 25 MG TAB PO SCH (08:04)
[2017-09-03] MEDS: Valsartan 80 MG TAB PO SCH (08:04)
--- NOTE | 2017-09-03 10:56 | PDOC.PN ---
- Subjective Encounter Start Date: 09/03/17 Encounter Start Time: 10:53 Mr. Carter was seen today in follow-up for diarrhea, and NSVT. He is feeling better and wants to go home. - Objective MAR Reviewed: Yes Vital Signs & Weight: Vital Signs (12 hours) Temp Pulse Resp BP BP Pulse Ox 09/03/17 08:00 97.2 F L 51 L 16 96 09/03/17 07:53 97.2 F L 51 L 16 143/68 H 96 09/03/17 04:00 97.9 F 58 L 18 147/81 H 97 Weight Admit Weight 204 lb 11.2 oz Weight 209 lb I&O: 09/02/17 09/03/17 09/04/17 06:59 06:59 06:59 Intake Total 3940 4400 Output Total 2425 1124 Balance 1515 3276 Result Diagrams: 08/31/17 04:46 09/02/17 04:50 Additional Labs: Accuchecks 09/03/17 09/02/17 09/02/17 06:33 20:51 16:32 POC Glucose 105 127 H 85 09/02/17 10:51 POC Glucose 115 H Phys Exam - Physical Examination HEENT: PERRLA Respiratory: no wheezing, no rales, no rhonchi, clear to auscultation bilateral Cardiovascular: RRR, no significant murmur Gastrointestinal: soft, non-tender, positive bowel sounds Musculoskeletal: no edema Dx/Plan (1) Campylobacter diarrhea Code(s): A04.5 - CAMPYLOBACTER ENTERITIS Status: Acute (2) Hypomagnesemia Code(s): E83.42 - HYPOMAGNESEMIA Status: Acute (3) NSVT (nonsustained ventricular tachycardia) Code(s): I47.2 - VENTRICULAR TACHYCARDIA Status: Acute (4) Diabetes type 2, controlled Code(s): E11.9 - TYPE 2 DIABETES MELLITUS WITHOUT COMPLICATIONS Status: Chronic (5) Hypertension Code(s): I10 - ESSENTIAL (PRIMARY) HYPERTENSION Status: Chronic - Plan * Diarrhea- this is slowly improving, he is still having some symptoms, but they are expected to resolve * NSVT- his heart rate has been stable. EP recommendations are noted * Stable for discharge home..
[2017-09-03 12:26] VITALS: BP 166/80; TEMP 98
--- NOTE | 2017-09-03 14:18 | DIS ---
PRIMARY CARE PHYSICIAN: Rancho Parekh M.D. DATE OF ADMISSION: 08/30/2017 DATE OF DISCHARGE: 09/03/2017 DISCHARGE DISPOSITION: Home. PRIMARY DISCHARGE DIAGNOSES: 1. Campylobacter diarrhea. 2. Nonsustained ventricular tachycardia. 3. Coronary artery disease. 4. Diabetes mellitus, type 2. 5. Hypertension. 6. History of esophageal cancer, status post chemotherapy and radiation. 7. History of hemorrhagic cerebrovascular accident. DISCHARGE MEDICATIONS: Include he is to continue Coreg 50 mg twice daily, aspirin 81 mg a day, aceta minophen 1000 mg q.6 hours, folic acid 1 tablet daily, Levaquin 500 mg daily for 3 days, magnesium ox kaden 400 mg daily, metformin 1000 mg twice daily, Nitrostat 0.4 sublingual p.r.n., omega 3 fatty acids 1 capsule daily, Protonix 40 mg twice daily, Florastor 250 mg daily for 30 days, Januvia 100 mg miah y, and valsartan 160 mg daily. PROCEDURES DONE DURING ADMISSION: The patient had an echocardiogram, in which the ejection fraction was estimated at 50% to 55%. There was some mild mitral regurgitation. HOSPITAL COURSE: Mr. Carter is a pleasant 72-year-old gentleman, who presented to the emergency [facility] with cough, fever, and diarrhea. He was recently diagnosed with the flu and started on Tamiflu 2 d ays prior to admission. He was sent over by his primary care physician when he had a high fever. It was also noted that he had an episode of nonsustained ventricular tachycardia. He was found to have Campylobacter enteritis, this was treated with Levaquin. Tamiflu was also continued during his hosp ital stay still completion. He was evaluated by both Cardiology and territory account manager and it was r ecommended that he undergo an echo CT had any structural heart disease. Echo was negative and other IE had had demonstrated an LV ejection fraction of 50% to 55%. There was no regional wall motion def ects. He was felt that it was best for him to continue his beta rhonda at the current dose. His ma gnesium was noted to be low and this may have contributed to the precipitation of the ventricular tac hycardia. His magnesium was replaced and he was subsequently able to be discharged home and to have close outpatient followup with his primary care physician.
== END 2017-09-03 13:27 | disposition home or self-care (01) | DRG 872 ==
LOC: ERS 14:48 → 2SW 17:19 → OBSVTOIN 08-31 10:08 → 2NO 08-31 13:12
PROVIDERS: ADMIT Internal Medicine; ATTEND Internal Medicine
DX: A41.89 Other specified sepsis (principal); I47.2 Ventricular tachycardia; N17.9 Acute kidney failure, unspecified; A04.5 Campylobacter enteritis; E11.9 Type 2 diabetes mellitus without complications; D64.9 Anemia, unspecified; I10 Essential (primary) hypertension; E78.5 Hyperlipidemia, unspecified; I25.10 Atherosclerotic heart disease of native coronary artery without angina pectoris; Z85.01 Personal history of malignant neoplasm of esophagus; Z86.73 Personal history of transient ischemic attack (TIA), and cerebral infarction without residual deficits; M19.90 Unspecified osteoarthritis, unspecified site; I25.2 Old myocardial infarction; Z87.891 Personal history of nicotine dependence; J20.8 Acute bronchitis due to other specified organisms; E83.42 Hypomagnesemia; Z92.3 Personal history of irradiation
CPT/HCPCS: 36415; 36416; 51701; 71010; 80048; 80053; 81003; 81015; 82553; 83605; 83735; 83880; 84484; 85025; 87015; 87040; 87045; 87046; 87086; 87324; 87449; 87899; 93005; 93306; 96360; 96361; A4216; J1956; J3475; J7050

== ENCOUNTER 2017-09-26 09:14 | Inpatient (IN) | payer MEDICARE ==
[2017-09-26] MEDS ORDERED: Acetaminophen 500 MG TAB ONE (09:22)
[2017-09-26 10:03] LABS: ALT (SGPT) 20 U/L (8-55); AST (SGOT) 15 U/L (5-34); Albumin 3.9 g/dL (3.4-4.8); Alkaline Phosphatase 98 U/L (40-150); Anion Gap 13 mmol/L (10-20); BUN (Urea Nitrogen) 8 mg/dL (8.4-25.7); Bilirubin, Total 0.6 mg/dL (0.2-1.2); Calc. Creatinine Clearance 0 mL/min (70-130); Calcium 10.3 mg/dL (7.8-10.44); Carbon Dioxide 26 mmol/L (23-31); Chloride 98 mmol/L (98-107); Estimated GFR-MDRD Greater than 90; Glucose 173 mg/dL (83-110); Potassium 3.6 mmol/L (3.5-5.1); Protein, Total 6.9 g/dL (5.8-8.1); Sodium 133 mmol/L (136-145)
[2017-09-26 10:06] LABS: #Lymphocytes 0.5 thou/uL (1.20-3.40); #Monocytes 0.5 thou/uL (0.11-0.59); #Neutrophils 4.3 thou/uL (1.40-6.50); %Eosinophils 0.4 % (0.0-10.0); %Lymphocytes 9.9 % (21.0-51.0); %Neutrophils 80.8 % (42.0-75.0); Hemoglobin 12.7 g/dL (14.0-18.0); Mean Corpuscular HGB CONC 32.5 g/dL (32.0-36.0); Mean Corpuscular Hemoglobin 30.5 pg (27.0-31.0); Mean Platelet Volume 6.5 fL (7.4-10.4); Platelet Count 196 thou/uL (130-400); RBC Distribution Width 13.7 % (11.5-14.5); Red Blood Cell (RBC) Count 4.14 mill/uL (4.70-6.10); White Blood Cell (WBC) Count 5.4 thou/uL (4.8-10.8)
[2017-09-26] MEDS ORDERED: Ibuprofen 200 MG TAB ONE (10:24)
--- NOTE | 2017-09-26 11:02 | RAD ---
PORTABLE CHEST ONE VIEW: Date: 09-26-17 Time: 10:50 a.m. History: Cough, fever. FINDINGS: Comparison is made with exam of 01-28-17. The heart size is normal. There are mild infiltrates in the lung bases. No pneumothoraces or pleural effusions are seen. IMPRESSION: Findings suspicious for pneumonia. POS: [facility]
[2017-09-26] MEDS ORDERED: Azithromycin 500 MG VIAL ONE (11:53)
[2017-09-26] MEDS ORDERED: Oseltamivir 75 MG CAP PO SCH (12:00)
[2017-09-26] MEDS ORDERED: cefTRIAXone\\ROCEPHIN 2 GM in Sodium Chloride 0.9% 100 ML IVPB SCH (12:15)
[2017-09-26] MEDS ORDERED: Nitroglycerin 0.4 MG TAB (25 Tab Bottle) SL PRN (12:20)
[2017-09-26] MEDS ORDERED: Senokot 8.6 MG TAB PO PRN (12:20)
[2017-09-26 14:02] LABS: Bilirubin Negative (Negative); Blood, Urine Negative (Negative); Clarity CLEAR (Clear); Glucose, Urine (Dipstick) 100 mg/dL (Negative); Leukocyte Negative (Negative); Nitrite Negative (Negative); Protein, Urine (Dipstick) 30 mg/dL (Neg-Trace); Specific Gravity, Urine 1.022 (1.002-1.036); pH, Urine 6.5 (5.0-9.0)
[2017-09-26 14:05] LABS: Bacteria/HPF None Seen HPF (None Seen); Hyaline Casts/LPF 4-6 HYALINE CAST LPF (0-3 Hyaline); RBC/HPF 0-3 HPF (0-3); Squamous Epithelial 0-3 HPF (0-3); WBC/HPF 0-3 HPF (0-3)
[2017-09-26 15:29] VITALS: BMI 29.6
--- NOTE | 2017-09-26 16:36 | HP ---
REASON FOR ADMISSION: Influenza A, pneumonia. HISTORY OF PRESENTING ILLNESS: The patient gives history of cough with shortness of breath and fever from Saturday morning. He feels like he is stuffed up. The patient in fact took a flu shot on 09/09/2017. On arrival here , patient had saturations of 85% on room air. He had a fever of 103. Patient has had a chest x-ray done which shows early pneumonia. No expectoration of sputum. He normally ambulates in the house. PAST MEDICAL AND SURGICAL HISTORY: History of esophageal cancer with surgery done for the same in January of this year in [place] at [facility]. He has had stomach pull-through with esophagectomy done for the same. He has apparently disease free from then. Hypertension, dyslipidemia, diabetes mellitus type 2, chronic anemia, renal stones, appendectomy, tonsillectomy, left hand surgery, and history of CO. CURRENT MEDICATIONS: Patient is on aspirin 81 mg p.o. daily, Coreg 25 mg p.o. twice daily, ferrous sulfate 325 mg p.o. daily, folic acid with multivitamin 1 tab once daily, magnesium oxide 400 mg p.o. daily, metformin 1000 mg p.o. twice daily, fish oil 1 capsule daily, Protonix 40 mg p.o. twice daily, Florastor 250 mg p.o. daily, Januvia 100 mg p.o. daily, valsartan 160 mg p.o. daily. ALLERGIES: No known drug allergies. PERSONAL HISTORY: Quit smoking 10 years back, but has smoked 2 packs a day for nearly 40 years prior to that. He quit chewing tobacco in September after diagnosis of esophageal cancer. Currently, does not abuse alcohol or drugs. Lives with his . FAMILY HISTORY: Father when he was 6 years old from renal failure and its complications. Mom in her 80s. She has had history of coronary artery disease. CODE STATUS: FULL. Power of family law attorney is his , Ms. Bakre. REVIEW OF SYSTEMS: The following complete review of systems was negative, unless otherwise mentioned in the HPI or below: Constitutional: Weight loss or gain, ability to conduct usual activities. Skin: Rash, itching. Eyes: Double vision, pain. ENT/Mouth: Nose bleeding, neck stiffness, pain, tenderness. Cardiovascular: Palpitations, dyspnea on exertion, orthopnea. Respiratory: Shortness of breath, wheezing, cough, hemoptysis, fever or night sweats. Gastrointestinal: Poor appetite, abdominal pain, heartburn, nausea, vomiting, constipation, or diarrhea. Genitourinary: Urgency, frequency, dysuria, nocturia. Musculoskeletal: Pain, swelling. Neurologic/Psychiatric: Anxiety, depression. Allergy/Immunologic: Skin rash, bleeding tendency. PHYSICAL EXAMINATION: GENERAL: The patient is a 72-year-old male who is currently not in any acute distress. VITAL SIGNS: Blood pressure 164/70, pulse 94 per minute, respiratory rate 18 per minute, temperature 103.2 degrees Fahrenheit on arrival, saturations were 85 % on room air on arrival, currently 96% on 2 liters nasal cannula. NECK: Supple, no elevated JVD. EYES: Extraocular muscles intact. Pupils reacting to light. ORAL CAVITY: Mucous membranes are moist. No exudates or congestion. CARDIOVASCULAR SYSTEM: S1, S2 heard. Regular rhythm. RESPIRATORY SYSTEM: Air entry 1+ bilateral. Scattered rhonchi plus bilateral. ABDOMEN: Soft, bowel sounds heard. No tenderness, rigidity or guarding. EXTREMITIES: There is mild peripheral edema, no calf tenderness. VASCULAR SYSTEM: Peripheral pulses 1+ bilateral. No ischemic ulcerations or gangrene. CENTRAL NERVOUS SYSTEM: No gross focal deficits seen. The patient has a bit hard of hearing otherwise oriented well. No hallucinations or delusions. LABORATORY DATA AND X-RAY FINDINGS: White count 5, hemoglobin and hematocrit 12 and 39, platelet count is 196 with 80% neutrophils, MCV is 94. Sodium 133, BUN 8, creatinine 0.8, serum bicarbonate 26, and serum glucose 173. Liver enzymes within normal limits. Albumin is 3.9. Nasal swab for influenza was positive for antigen. Chest x-ray done shows findings suspicious for early pneumonia of both lung bases. CLINICAL IMPRESSION AND PLAN: Patient will be admitted to medical floor for influenza A, pneumonia, and acute respiratory failure with hypoxia. He will be placed on Tamiflu 75 mg twice daily. We will also empirically place him on Levaquin 750 mg daily. Blood and sputum cultures will be obtained. We will continue his aspirin, Coreg, ferrous sulfate, fish oil, metformin, Protonix, and Januvia as before. Will be on DuoNebs q.6 hourly. We will continue to closely monitor him on the medical floor. [facility]
[2017-09-26] MEDS: Acetaminophen 325 MG TAB PO PRN (17:33)
[2017-09-26] MEDS: metFORMIN 500 MG TAB PO SCH (17:33)
[2017-09-26] MEDS: Carvedilol 25 MG TAB PO SCH (17:34)
[2017-09-26] MEDS ORDERED: Famotidine 20 MG TAB PO SCH (21:00)
[2017-09-26] MEDS: Oseltamivir 75 MG CAP PO SCH (21:24)
[2017-09-26] MEDS: Guaifenesin DM 100-10/5 ML UDCUP PO PRN (21:24)
[2017-09-27] MEDS: Guaifenesin DM 100-10/5 ML UDCUP PO PRN ×4 (00:52→21:13)
[2017-09-27 04:34] LABS: #Basophils 0.1 thou/uL (0.0-0.2); #Lymphocytes 0.6 thou/uL (1.20-3.40); #Monocytes 0.8 thou/uL (0.11-0.59); #Neutrophils 5.5 thou/uL (1.40-6.50); %Basophils 0.9 % (0.0-1.0); %Eosinophils 0.2 % (0.0-10.0); %Monocytes 11.9 % (0.0-10.0); %Neutrophils 77.9 % (42.0-75.0); Hemoglobin 10.9 g/dL (14.0-18.0); Mean Corpuscular HGB CONC 32.4 g/dL (32.0-36.0); Mean Corpuscular Hemoglobin 30.8 pg (27.0-31.0); Mean Platelet Volume 6.8 fL (7.4-10.4); Platelet Count 176 thou/uL (130-400); Red Blood Cell (RBC) Count 3.56 mill/uL (4.70-6.10)
[2017-09-27 04:52] LABS: Anion Gap 10 mmol/L (10-20); BUN (Urea Nitrogen) 10 mg/dL (8.4-25.7); Calc. Creatinine Clearance 120 mL/min (70-130); Calcium 9.7 mg/dL (7.8-10.44); Carbon Dioxide 26 mmol/L (23-31); Chloride 104 mmol/L (98-107); Estimated GFR-MDRD Greater than 90; Glucose 105 mg/dL (83-110); Potassium 3.7 mmol/L (3.5-5.1); Sodium 136 mmol/L (136-145)
[2017-09-27] MEDS: Acetaminophen 325 MG TAB PO PRN (06:36)
[2017-09-27] MEDS: Enoxaparin Sodium 40 MG/0.4 ML SYRINGE SC SCH (09:07)
[2017-09-27] MEDS: Oseltamivir 75 MG CAP PO SCH ×2 (09:08→21:12)
[2017-09-27] MEDS: Fish Oil 1,000 MG CAP PO SCH (09:09)
[2017-09-27] MEDS: Alogliptin 25 MG TAB PO SCH (09:09)
[2017-09-27] MEDS: Ferrous Sulfate 325 MG TAB PO SCH (09:09)
[2017-09-27] MEDS: metFORMIN 500 MG TAB PO SCH ×2 (09:09→15:12)
[2017-09-27] MEDS: Multivitamin W/ Minerals 1 TAB PO SCH (09:09)
[2017-09-27] MEDS: Aspirin 81 mg Enteric Coated Tablet PO SCH (09:10)
[2017-09-27] MEDS: Saccharomyces boulardii 250 MG CAP PO SCH (09:10)
--- NOTE | 2017-09-27 12:01 | PDOC.PN ---
- Subjective Encounter Start Date: 09/27/17 Encounter Start Time: 10:00 Subjective: c/o greenish watery diarrhea times 2 from am -: no sob or dizziness - Objective MAR Reviewed: Yes Vital Signs & Weight: Vital Signs (12 hours) Temp Pulse Resp BP Pulse Ox 09/27/17 11:19 98.1 F 73 19 125/68 97 09/27/17 08:00 98.3 F 74 19 138/63 93 L 09/27/17 05:30 99.7 F H 76 18 139/72 96 09/27/17 05:21 95 09/27/17 00:00 99.4 F 78 18 127/62 95 Weight Weight 218 lb 11.2 oz I&O: 09/26/17 09/27/17 09/28/17 06:59 06:59 06:59 Intake Total 480 Balance 480 Result Diagrams: 09/27/17 03:10 09/27/17 03:10 Additional Labs: Accuchecks 09/27/17 09/27/17 09/26/17 11:07 06:45 21:31 POC Glucose 91 90 117 H 09/26/17 16:56 POC Glucose 140 H Phys Exam - Physical Examination HEENT: PERRLA, sclera anicteric Neck: no JVD, supple Respiratory: no wheezing, no rales rhonchi+ Cardiovascular: RRR, no significant murmur Gastrointestinal: soft, non-tender, no distention, positive bowel sounds Musculoskeletal: no edema, pulses present Neurological: non-focal, moves all 4 limbs Dx/Plan (1) Influenza A Code(s): J10.1 - FLU DUE TO OTH IDENT INFLUENZA VIRUS W OTH RESP MANIFEST Status: Acute (2) PNA (pneumonia) Code(s): J18.9 - PNEUMONIA, UNSPECIFIED ORGANISM Status: Acute Qualifiers: Pneumonia type: due to unspecified organism (3) Chronic anemia Code(s): D64.9 - ANEMIA, UNSPECIFIED Status: Chronic (4) History of esophageal cancer Code(s): Z85.01 - PERSONAL HISTORY OF MALIGNANT NEOPLASM OF ESOPHAGUS Status: Chronic Comment: in remission, had esophagectomy with stomach pull through (5) Diarrhea Code(s): R19.7 - DIARRHEA, UNSPECIFIED Status: Acute Qualifiers: Diarrhea type: presumed infectious Qualified Code(s): A09 - Infectious gastroenteritis and colitis, unspecified (6) Generalized weakness Code(s): R53.1 - WEAKNESS Status: Acute (7) CAD (coronary artery disease) Code(s): I25.10 - ATHSCL HEART DISEASE OF [place] CORONARY ARTERY W/O ANG PCTRS Status: Chronic Qualifiers: Coronary Disease-Associated Artery/Lesion type: [place] artery [place] vs. transplanted heart: [place] heart Associated angina: without angina Qualified Code(s): I25.10 - Atherosclerotic heart disease of [place] coronary artery without angina pectoris (8) Diabetes type 2, controlled Code(s): E11.9 - TYPE 2 DIABETES MELLITUS WITHOUT COMPLICATIONS Status: Chronic Qualifiers: Diabetes mellitus complication status: with unspecified complications Diabetes mellitus long term care phlebotomist insulin use: without long term care phlebotomist use Qualified Code( s): E11.8 - Type 2 diabetes mellitus with unspecified complications (9) Hypertension Code(s): I10 - ESSENTIAL (PRIMARY) HYPERTENSION Status: Chronic Qualifiers: Hypertension type: essential hypertension Qualified Code(s): I10 - Essential (primary) hypertension - Plan is on levaquin, tamiflu, nebs prn -: tmax of 99.5 -: reduce dose of coreg -: watch for hypotension -: stool studies, recent campylobacter diarrhea * . Review of Systems - Medications/Allergies Allergies/Adverse Reactions: Allergies Allergy/AdvReac Type Severity Reaction Status Date / Time No Known Drug Allergies Allergy Verified 08/30/17 19:47 Medications: Current Medications Acetaminophen (Tylenol) 650 mg PO Q4H PRN PRN Reason: Headache/Fever or Pain Last Admin: 09/27/17 06:36 Dose: 650 mg Albuterol/Ipratropium (Duoneb) 3 ml NEB [id number] [facility] Last Admin: 09/27/17 06:39 Dose: 3 ml Alogliptin Benzoate (Alogliptin) 25 mg PO DAILY [facility] Last Admin: 09/27/17 09:09 Dose: 25 mg Aspirin (Ecotrin) 81 mg PO DAILY [facility] Last Admin: 09/27/17 09:10 Dose: 81 mg Carvedilol (Coreg) 6.25 mg PO BID-[facility] Enoxaparin Sodium (Lovenox) 40 mg SC 0900 [facility] Last Admin: 09/27/17 09:07 Dose: 40 mg Ferrous Sulfate (Feosol) 325 mg PO DAILY [facility] Last Admin: 09/27/17 09:09 Dose: 325 mg Fish Oil (Fish Oil) 1,000 mg PO DAILY [facility] Last Admin: 09/27/17 09:09 Dose: 1,000 mg Guaifenesin/Dextromethorphan (Robitussin Dm) 15 ml PO Q4H PRN PRN Reason: Cough Last Admin: 09/27/17 09:13 Dose: 10 ml Levofloxacin 750 mg/ Device 150 mls @ 100 mls/hr IVPB Q24HR [facility] Last Admin: 09/26/17 15:13 Dose: 150 mls Iron/Minerals/Multivitamins (Theragran M) 1 tab PO DAILY [facility] Last Admin: 09/27/17 09:09 Dose: 1 tab Metformin HCl (Glucophage) 1,000 mg PO BID-[facility] Last Admin: 09/27/17 09:09 Dose: 1,000 mg Nitroglycerin (Nitrostat) 0.4 mg SL Q5MIN PRN PRN Reason: Chest Pain Oseltamivir Phosphate (Tamiflu) 75 mg PO BID [facility] Stop: 10/01/17 09:01 Last Admin: 09/27/17 09:08 Dose: 75 mg Pantoprazole Sodium (Protonix) 40 mg PO BID [facility] Last Admin: 09/27/17 09:10 Dose: 40 mg Saccharomyces Boulardii (Florastor) 250 mg PO DAILY [facility] Last Admin: 09/27/17 09:10 Dose: 250 mg Senna (Senokot) 2 tab PO HSPRN PRN PRN Reason: Constipation
[2017-09-27] MEDS: Carvedilol 25 MG TAB PO SCH (14:54)
[2017-09-27] MEDS: Carvedilol 6.25 MG TAB PO SCH (15:11)
[2017-09-28] MEDS: Multivitamin W/ Minerals 1 TAB PO SCH (08:31)
[2017-09-28] MEDS: Alogliptin 25 MG TAB PO SCH (08:32)
[2017-09-28] MEDS: Ferrous Sulfate 325 MG TAB PO SCH (08:32)
[2017-09-28] MEDS: Carvedilol 6.25 MG TAB PO SCH ×2 (08:32→16:53)
[2017-09-28] MEDS: Fish Oil 1,000 MG CAP PO SCH (08:32)
[2017-09-28] MEDS: metFORMIN 500 MG TAB PO SCH ×2 (08:32→16:53)
[2017-09-28] MEDS: Oseltamivir 75 MG CAP PO SCH ×2 (08:33→21:04)
[2017-09-28] MEDS: Saccharomyces boulardii 250 MG CAP PO SCH (08:33)
[2017-09-28] MEDS: Aspirin 81 mg Enteric Coated Tablet PO SCH (08:33)
[2017-09-28] MEDS: Enoxaparin Sodium 40 MG/0.4 ML SYRINGE SC SCH (08:33)
--- NOTE | 2017-09-28 12:02 | PDOC.PN ---
- Subjective Encounter Start Date: 09/28/17 Encounter Start Time: 11:10 Subjective: no sob, is amb in room -: no diarrhea now -: overall feels better - Objective MAR Reviewed: Yes Vital Signs & Weight: Vital Signs (12 hours) Temp Pulse Resp BP BP Pulse Ox 09/28/17 09:18 98 F 58 L 22 H 162/80 H 96 09/28/17 08:00 98 F 58 L 22 H 96 09/28/17 06:48 58 L 16 96 09/28/17 03:05 94 L 09/28/17 01:58 69 18 95 09/28/17 00:55 98.7 F 57 L 20 160/80 H 98 Weight Weight 218 lb 11.2 oz I&O: 09/27/17 09/28/17 09/29/17 06:59 06:59 06:59 Intake Total 480 640 Balance 480 640 Result Diagrams: 09/27/17 03:10 09/27/17 03:10 Additional Labs: Accuchecks 09/28/17 09/27/17 09/27/17 05:00 21:08 16:00 POC Glucose 111 H 97 122 H Phys Exam - Physical Examination HEENT: PERRLA, moist MMs Neck: no JVD, supple Respiratory: no wheezing, no rales Cardiovascular: RRR, no significant murmur Gastrointestinal: soft, non-tender, positive bowel sounds Musculoskeletal: no edema, pulses present Neurological: non-focal, moves all 4 limbs Dx/Plan (1) Influenza A Code(s): J10.1 - FLU DUE TO OTH IDENT INFLUENZA VIRUS W OTH RESP MANIFEST Status: Acute (2) PNA (pneumonia) Code(s): J18.9 - PNEUMONIA, UNSPECIFIED ORGANISM Status: Acute Qualifiers: Pneumonia type: due to unspecified organism (3) Chronic anemia Code(s): D64.9 - ANEMIA, UNSPECIFIED Status: Chronic (4) History of esophageal cancer Code(s): Z85.01 - PERSONAL HISTORY OF MALIGNANT NEOPLASM OF ESOPHAGUS Status: Chronic Comment: in remission, had esophagectomy with stomach pull through (5) Diarrhea Code(s): R19.7 - DIARRHEA, UNSPECIFIED Status: Acute Qualifiers: Diarrhea type: presumed infectious Qualified Code(s): A09 - Infectious gastroenteritis and colitis, unspecified (6) Generalized weakness Code(s): R53.1 - WEAKNESS Status: Acute (7) CAD (coronary artery disease) Code(s): I25.10 - ATHSCL HEART DISEASE OF [place] CORONARY ARTERY W/O ANG PCTRS Status: Chronic Qualifiers: Coronary Disease-Associated Artery/Lesion type: [place] artery [place] vs. transplanted heart: [place] heart Associated angina: without angina Qualified Code(s): I25.10 - Atherosclerotic heart disease of [place] coronary artery without angina pectoris (8) Diabetes type 2, controlled Code(s): E11.9 - TYPE 2 DIABETES MELLITUS WITHOUT COMPLICATIONS Status: Chronic Qualifiers: Diabetes mellitus complication status: with unspecified complications Diabetes mellitus custodial insulin use: without custodial use Qualified Code( s): E11.8 - Type 2 diabetes mellitus with unspecified complications (9) Hypertension Code(s): I10 - ESSENTIAL (PRIMARY) HYPERTENSION Status: Chronic Qualifiers: Hypertension type: essential hypertension Qualified Code(s): I10 - Essential (primary) hypertension - Plan stool cs and cdiff is -ve -: await blood cs results, ?gm + Dr.Lemos kvng consultation -: is on levaquin and tamiflu for infl A -: repeat cxr in am, still has some cough -: d/w and patient in room * . Review of Systems - Medications/Allergies Allergies/Adverse Reactions: Allergies Allergy/AdvReac Type Severity Reaction Status Date / Time No Known Drug Allergies Allergy Verified 08/30/17 19:47 Medications: Current Medications Acetaminophen (Tylenol) 650 mg PO Q4H PRN PRN Reason: Headache/Fever or Pain Last Admin: 09/27/17 06:36 Dose: 650 mg Albuterol/Ipratropium (Duoneb) 3 ml NEB [id number] [facility] Last Admin: 09/28/17 06:48 Dose: 3 ml Alogliptin Benzoate (Alogliptin) 25 mg PO DAILY [facility] Last Admin: 09/28/17 08:32 Dose: 25 mg Aspirin (Ecotrin) 81 mg PO DAILY [facility] Last Admin: 09/28/17 08:33 Dose: 81 mg Carvedilol (Coreg) 6.25 mg PO BID-WM [facility] Last Admin: 09/28/17 08:32 Dose: 6.25 mg Enoxaparin Sodium (Lovenox) 40 mg SC 0900 [facility] Last Admin: 09/28/17 08:33 Dose: 40 mg Ferrous Sulfate (Feosol) 325 mg PO DAILY [facility] Last Admin: 09/28/17 08:32 Dose: 325 mg Fish Oil (Fish Oil) 1,000 mg PO DAILY [facility] Last Admin: 09/28/17 08:32 Dose: 1,000 mg Guaifenesin/Dextromethorphan (Robitussin Dm) 15 ml PO Q4H PRN PRN Reason: Cough Last Admin: 09/27/17 21:13 Dose: 5 ml Levofloxacin 750 mg/ Device 150 mls @ 100 mls/hr IVPB Q24HR [facility] Last Admin: 09/27/17 15:12 Dose: 150 mls Iron/Minerals/Multivitamins (Theragran M) 1 tab PO DAILY [facility] Last Admin: 09/28/17 08:31 Dose: 1 tab Metformin HCl (Glucophage) 1,000 mg PO BID-[facility] Last Admin: 09/28/17 08:32 Dose: 1,000 mg Nitroglycerin (Nitrostat) 0.4 mg SL Q5MIN PRN PRN Reason: Chest Pain Oseltamivir Phosphate (Tamiflu) 75 mg PO BID [facility] Stop: 10/01/17 09:01 Last Admin: 09/28/17 08:33 Dose: 75 mg Pantoprazole Sodium (Protonix) 40 mg PO BID [facility] Last Admin: 09/28/17 08:31 Dose: 40 mg Saccharomyces Boulardii (Florastor) 250 mg PO DAILY [facility] Last Admin: 09/28/17 08:33 Dose: 250 mg Senna (Senokot) 2 tab PO HSPRN PRN PRN Reason: Constipation
[2017-09-28] MEDS: Guaifenesin DM 100-10/5 ML UDCUP PO PRN ×2 (13:01→21:03)
[2017-09-28] MEDS: hydrALAZINE 20 MG/ML VIAL SLOW IVP PRN (23:15)
[2017-09-29 05:13] LABS: #Eosinphils 0.2 thou/uL (0.0-0.7); #Lymphocytes 0.6 thou/uL (1.20-3.40); #Monocytes 0.4 thou/uL (0.11-0.59); #Neutrophils 4.4 thou/uL (1.40-6.50); %Basophils 0.6 % (0.0-1.0); %Eosinophils 3.6 % (0.0-10.0); %Lymphocytes 11.1 % (21.0-51.0); %Monocytes 7.1 % (0.0-10.0); %Neutrophils 77.6 % (42.0-75.0); Hemoglobin 11.5 g/dL (14.0-18.0); Mean Corpuscular HGB CONC 32.5 g/dL (32.0-36.0); Mean Corpuscular Hemoglobin 30.7 pg (27.0-31.0); Mean Corpuscular Volume 94.5 fl (80.0-94.0); Mean Platelet Volume 6.8 fL (7.4-10.4); Platelet Count 212 thou/uL (130-400); RBC Distribution Width 13.7 % (11.5-14.5); Red Blood Cell (RBC) Count 3.76 mill/uL (4.70-6.10); White Blood Cell (WBC) Count 5.6 thou/uL (4.8-10.8)
[2017-09-29 05:28] LABS: Anion Gap 12 mmol/L (10-20); BUN (Urea Nitrogen) 5 mg/dL (8.4-25.7); Calc. Creatinine Clearance 147 mL/min (70-130); Calcium 10.6 mg/dL (7.8-10.44); Carbon Dioxide 28 mmol/L (23-31); Chloride 103 mmol/L (98-107); Estimated GFR-MDRD Greater than 90; Glucose 108 mg/dL (83-110); Potassium 3.2 mmol/L (3.5-5.1); Sodium 140 mmol/L (136-145)
[2017-09-29] MEDS: Ferrous Sulfate 325 MG TAB PO SCH (08:43)
[2017-09-29] MEDS: Oseltamivir 75 MG CAP PO SCH ×2 (08:43→21:33)
[2017-09-29] MEDS: Alogliptin 25 MG TAB PO SCH (08:43)
[2017-09-29] MEDS: Saccharomyces boulardii 250 MG CAP PO SCH (08:43)
[2017-09-29] MEDS: Multivitamin W/ Minerals 1 TAB PO SCH (08:43)
[2017-09-29] MEDS: metFORMIN 500 MG TAB PO SCH ×2 (08:43→15:53)
[2017-09-29] MEDS: Fish Oil 1,000 MG CAP PO SCH (08:43)
[2017-09-29] MEDS: Carvedilol 6.25 MG TAB PO SCH ×2 (08:43→15:53)
[2017-09-29] MEDS: Aspirin 81 mg Enteric Coated Tablet PO SCH (08:43)
[2017-09-29] MEDS: Enoxaparin Sodium 40 MG/0.4 ML SYRINGE SC SCH (08:44)
[2017-09-29] MEDS: hydrALAZINE 20 MG/ML VIAL SLOW IVP PRN ×2 (12:35→21:35)
--- NOTE | 2017-09-29 15:17 | PDOC.PN ---
- Subjective Encounter Start Date: 09/29/17 Encounter Start Time: 15:15 Patient seen and examined. No new complaints. No overnight events. feeling better.cough better. at bedside. - Objective MAR Reviewed: Yes Vital Signs & Weight: Vital Signs (12 hours) Temp Pulse Resp BP BP Pulse Ox 09/29/17 12:35 61 196/91 H 09/29/17 08:43 182/88 H 09/29/17 08:28 98 F 61 22 H 161/75 H 96 09/29/17 08:00 98 F 61 22 H 96 09/29/17 04:00 98.3 F 61 20 148/76 H 98 Weight Weight 218 lb 11.2 oz I&O: 09/28/17 09/29/17 09/30/17 06:59 06:59 06:59 Intake Total 640 2380 Balance 640 2380 Result Diagrams: 09/29/17 03:24 09/29/17 03:24 Additional Labs: Accuchecks 09/28/17 15:42 POC Glucose 89 Phys Exam - Physical Examination Constitutional: NAD HEENT: sclera anicteric Neck: supple Respiratory: no rhonchi Cardiovascular: RRR Gastrointestinal: soft Musculoskeletal: no edema Neurological: non-focal, moves all 4 limbs Psychiatric: normal affect, A&O x 3 Dx/Plan (1) Influenza A Code(s): J10.1 - FLU DUE TO OTH IDENT INFLUENZA VIRUS W OTH RESP MANIFEST Status: Acute (2) PNA (pneumonia) Code(s): J18.9 - PNEUMONIA, UNSPECIFIED ORGANISM Status: Acute Qualifiers: Pneumonia type: due to unspecified organism (3) Chronic anemia Code(s): D64.9 - ANEMIA, UNSPECIFIED Status: Chronic (4) History of esophageal cancer Code(s): Z85.01 - PERSONAL HISTORY OF MALIGNANT NEOPLASM OF ESOPHAGUS Status: Chronic Comment: in remission, had esophagectomy with stomach pull through (5) CAD (coronary artery disease) Code(s): I25.10 - ATHSCL HEART DISEASE OF [place] CORONARY ARTERY W/O ANG PCTRS Status: Chronic Qualifiers: Coronary Disease-Associated Artery/Lesion type: [place] artery [place] vs. transplanted heart: [place] heart Associated angina: without angina Qualified Code(s): I25.10 - Atherosclerotic heart disease of [place] coronary artery without angina pectoris (6) Diabetes type 2, controlled Code(s): E11.9 - TYPE 2 DIABETES MELLITUS WITHOUT COMPLICATIONS Status: Chronic Qualifiers: Diabetes mellitus complication status: with unspecified complications Diabetes mellitus assistant terminal manager insulin use: without assistant terminal manager use Qualified Code( s): E11.8 - Type 2 diabetes mellitus with unspecified complications (7) Hypertension Code(s): I10 - ESSENTIAL (PRIMARY) HYPERTENSION Status: Chronic Qualifiers: Hypertension type: essential hypertension Qualified Code(s): I10 - Essential (primary) hypertension - Plan cont current plan of care, plan discussed w/ family, continue antibiotics * . continue current management replete K add Amlodipine blood cs with possible contamination per Dr Wolfe. hold ARB AM labs. Possible DC in 24-48 hrs
[2017-09-29] MEDS ORDERED: Potassium Chloride 20 MEQ TAB PO SCH (15:30)
[2017-09-29] MEDS ORDERED: Amlodipine 5 MG TAB PO SCH (15:30)
--- NOTE | 2017-09-29 15:52 | CON ---
DATE OF CONSULTATION: 09/29/2017 REASON FOR CONSULTATION: Pneumonia, bacteremia. HISTORY OF PRESENT ILLNESS: A 72-year-old gentleman who has a history of esophageal cancer status po st curative resection at [facility] with pullthrough esophagectomy, hypertension, type 2 diab etes, nephrolithiasis, who developed cough and was admitted. We were asked to see him because of thom teremia. The patient is feeling better, almost back to normal at this time, coughing intermittently, but less. No headaches, visual symptoms, sore throat, odynophagia, dysphagia, no back pain, no ches t pain, no sputum production, no abdominal pain and diarrhea. No genitourinary symptoms. He did hav e some diarrhea before, but now has resolved. No joint symptoms except for the knee, chronic arthrit is. No neurological symptoms. PAST MEDICAL HISTORY: Esophageal cancer with curative surgery in [place], type 2 diabetes, hypertens ion, dyslipidemia, nephrolithiasis with one obstructive stone in the past, coronary artery disease wi th prior PA. ALLERGIES: None. MEDICATIONS: Tylenol, DuoNeb, alogliptin, Ecotrin, Coreg, Lovenox, Feosol, Robitussin, Apresoline, T heragran, levofloxacin, metformin, Nitrostat, Tamiflu. FAMILY HISTORY: Coronary artery disease. SOCIAL HISTORY: Former smoker, retired. PHYSICAL EXAMINATION: VITAL SIGNS: T-max 99.7, currently 98, blood pressure 160/70, pulse 61, respirations 22, O2 sat 96%. GENERAL: Appears in no distress. Sitting up with in the room, quite severe hearing impairment, peripheral IV access. No Tran catheter. SKIN: No skin disorder. HEENT: No lymphadenopathy. Ocular movements are conjugate. Sclerae white. Oral cavity still quite a few teeth in place with some decay and gum disease. NECK: Supple, no jugular venous distention. LUNGS: With very faint crackles in the left side. HEART: S1, S2, regular rate. No S3 or S4. ABDOMEN: Soft, not distended or tender. No ascites. No bladder distention. : No genital abnormalities. EXTREMITIES: No joint inflammatory activity noted. Pulses are 1+ in dorsalis pedis. Plantar respon ses are flexor. Moves extremities equally. NEUROLOGIC: Cognitive function appears to be intact except for the hearing impairment. LABORATORY DATA: Sodium 133 and 136, creatinine is 0.77. Liver profile normal. Albumin 3.9. White cell count 5.4 and now 5.6, hemoglobin 11.5, platelets 212, 77% neutrophils. Urinalysis fairly unre markable. Microbiology with positive influenza A antigen on arrival. Two sets of blood cultures wit h coagulase negative Staph and corynebacterium most likely contaminant. Repeat blood cultures negati ve thus far. Reports include a chest x-ray with mild infiltrates in the lung bases. There is an ech ocardiogram from the beginning of the month with EF of 50-55%, mild mitral regurgitation. ASSESSMENT: 1. Esophageal cancer status post curative resection. 2. Type 2 diabetes. 3. Influenza A. 4. Mild x-ray change. 5. Blood culture findings. DISCUSSION: The blood cultures findings are due to contamination of the sample and do not merit dustin tment. Consider discontinuing levofloxacin. Discharge planning. There is no evidence of aspiration according to the history and the patient does have the recommendation of sleeping upright in bed, so metimes he sleeps in the recliner. If you feel more comfortable continuing antimicrobials for a few more days, then you could switch him to either Augmentin or doxycycline for discharge planning and co ntinue Tamiflu for a total of 5 days.
[2017-09-29] MEDS: Acetaminophen 325 MG TAB PO PRN (21:31)
[2017-09-30 05:04] LABS: #Eosinphils 0.1 thou/uL (0.0-0.7); #Lymphocytes 0.7 thou/uL (1.20-3.40); #Monocytes 0.4 thou/uL (0.11-0.59); #Neutrophils 3.5 thou/uL (1.40-6.50); %Basophils 0.3 % (0.0-1.0); %Lymphocytes 15.1 % (21.0-51.0); %Neutrophils 73.6 % (42.0-75.0); Mean Corpuscular Hemoglobin 30.7 pg (27.0-31.0); Mean Corpuscular Volume 93.1 fl (80.0-94.0); Mean Platelet Volume 6.7 fL (7.4-10.4); Platelet Count 239 thou/uL (130-400); RBC Distribution Width 13.6 % (11.5-14.5); White Blood Cell (WBC) Count 4.8 thou/uL (4.8-10.8)
[2017-09-30 05:13] LABS: Anion Gap 11 mmol/L (10-20); BUN (Urea Nitrogen) 4 mg/dL (8.4-25.7); Calc. Creatinine Clearance 147 mL/min (70-130); Calcium 10.6 mg/dL (7.8-10.44); Carbon Dioxide 26 mmol/L (23-31); Chloride 104 mmol/L (98-107); Estimated GFR-MDRD Greater than 90; Glucose 110 mg/dL (83-110); Potassium 3.3 mmol/L (3.5-5.1); Sodium 138 mmol/L (136-145)
[2017-09-30] MEDS: metFORMIN 500 MG TAB PO SCH ×2 (09:53→17:10)
[2017-09-30] MEDS: Carvedilol 6.25 MG TAB PO SCH ×2 (09:54→17:10)
[2017-09-30] MEDS: Ferrous Sulfate 325 MG TAB PO SCH (09:55)
[2017-09-30] MEDS: Alogliptin 25 MG TAB PO SCH (09:55)
[2017-09-30] MEDS: Aspirin 81 mg Enteric Coated Tablet PO SCH (09:55)
[2017-09-30] MEDS: Multivitamin W/ Minerals 1 TAB PO SCH (09:55)
[2017-09-30] MEDS: Saccharomyces boulardii 250 MG CAP PO SCH (09:55)
[2017-09-30] MEDS: Amlodipine 5 MG TAB PO SCH (09:55)
[2017-09-30] MEDS: Enoxaparin Sodium 40 MG/0.4 ML SYRINGE SC SCH (09:59)
[2017-09-30] MEDS: Fish Oil 1,000 MG CAP PO SCH (09:59)
[2017-09-30] MEDS: Oseltamivir 75 MG CAP PO SCH ×2 (10:00→20:46)
[2017-09-30] MEDS ORDERED: Potassium Chloride 20 MEQ TAB PO SCH (13:30)
--- NOTE | 2017-09-30 13:34 | PDOC.PN ---
- Subjective Encounter Start Date: 09/30/17 Encounter Start Time: 13:33 feels better. still hypoxic. - Objective MAR Reviewed: Yes Vital Signs & Weight: Vital Signs (12 hours) Temp Pulse Resp BP BP 09/30/17 09:55 65 157/65 H 09/30/17 09:54 157/65 H 09/30/17 08:00 98.3 F 82 22 H 157/65 H Weight Weight 218 lb 11.2 oz I&O: 09/29/17 09/30/17 10/01/17 06:59 06:59 06:59 Intake Total 2380 2700 Balance 2380 2700 Result Diagrams: 09/30/17 03:29 09/30/17 03:29 Additional Labs: Accuchecks 09/30/17 09/29/17 04:40 21:08 POC Glucose 107 113 H Phys Exam - Physical Examination Constitutional: NAD HEENT: sclera anicteric Neck: supple Respiratory: no wheezing, no rales Cardiovascular: RRR Gastrointestinal: soft Musculoskeletal: no edema Neurological: non-focal, moves all 4 limbs Psychiatric: normal affect, A&O x 3 Skin: no rash Dx/Plan (1) Influenza A Code(s): J10.1 - FLU DUE TO OTH IDENT INFLUENZA VIRUS W OTH RESP MANIFEST Status: Acute (2) PNA (pneumonia) Code(s): J18.9 - PNEUMONIA, UNSPECIFIED ORGANISM Status: Acute Qualifiers: Pneumonia type: due to unspecified organism (3) Chronic anemia Code(s): D64.9 - ANEMIA, UNSPECIFIED Status: Chronic (4) History of esophageal cancer Code(s): Z85.01 - PERSONAL HISTORY OF MALIGNANT NEOPLASM OF ESOPHAGUS Status: Chronic Comment: in remission, had esophagectomy with stomach pull through (5) CAD (coronary artery disease) Code(s): I25.10 - ATHSCL HEART DISEASE OF [place] CORONARY ARTERY W/O ANG PCTRS Status: Chronic Qualifiers: Coronary Disease-Associated Artery/Lesion type: [place] artery [place] vs. transplanted heart: [place] heart Associated angina: without angina Qualified Code(s): I25.10 - Atherosclerotic heart disease of [place] coronary artery without angina pectoris (6) Diabetes type 2, controlled Code(s): E11.9 - TYPE 2 DIABETES MELLITUS WITHOUT COMPLICATIONS Status: Chronic Qualifiers: Diabetes mellitus complication status: with unspecified complications Diabetes mellitus longterm insulin use: without longterm use Qualified Code( s): E11.8 - Type 2 diabetes mellitus with unspecified complications (7) Hypertension Code(s): I10 - ESSENTIAL (PRIMARY) HYPERTENSION Status: Chronic Qualifiers: Hypertension type: essential hypertension Qualified Code(s): I10 - Essential (primary) hypertension - Plan cont current plan of care, continue antibiotics, respiratory therapy, DVT proph w/lovenox * . check O2 If not hypoxic, DC home today. continue Tamiflu and po abx.
[2017-09-30] MEDS: Acetaminophen 325 MG TAB PO PRN (22:39)
[2017-10-01 03:52] VITALS: TEMP 97.9
[2017-10-01] MEDS: Alogliptin 25 MG TAB PO SCH (08:10)
[2017-10-01] MEDS: Multivitamin W/ Minerals 1 TAB PO SCH (08:10)
[2017-10-01] MEDS: Fish Oil 1,000 MG CAP PO SCH (08:10)
[2017-10-01] MEDS: Aspirin 81 mg Enteric Coated Tablet PO SCH (08:11)
[2017-10-01] MEDS: metFORMIN 500 MG TAB PO SCH (08:11)
[2017-10-01] MEDS: Carvedilol 6.25 MG TAB PO SCH (08:11)
[2017-10-01] MEDS: Amlodipine 5 MG TAB PO SCH (08:11)
[2017-10-01] MEDS: Saccharomyces boulardii 250 MG CAP PO SCH (08:11)
[2017-10-01] MEDS: Ferrous Sulfate 325 MG TAB PO SCH (08:13)
[2017-10-01] MEDS: Enoxaparin Sodium 40 MG/0.4 ML SYRINGE SC SCH (08:13)
[2017-10-01 08:15] VITALS: BP 134/77
[2017-10-01] MEDS: Acetaminophen 325 MG TAB PO PRN (08:15)
[2017-10-01] MEDS: Oseltamivir 75 MG CAP PO SCH (09:45)
[2017-10-01] MEDS ORDERED: Doxycycline 100 MG CAP PO SCH (21:00)
--- NOTE | 2017-10-02 03:20 | DIS ---
DATE OF ADMISSION: 09/26/2017 DATE OF DISCHARGE: 10/01/2017 DISCHARGE DIAGNOSES: 1. Influenza A pneumonia versus acute bronchitis. 2. History of tobacco use, history of esophageal cancer. 3. Hypertension. 4. Hyperlipidemia. 5. Type 2 diabetes. 6. Chronic anemia. 7. Nephrolithiasis. CONSULTS: Dr. Wolfe from infectious disease. PROCEDURES: None. HOSPITAL COURSE: This is a 72-year-old male who was admitted with flu-like symptoms, cough and short ness, was found to have a pneumonia and flu. The patient was treated with Tamiflu for 5 days with si gnificant improvement. The patient was also given Levaquin. The patient initially had bacteremia, b ut he was found to have contaminant, also the patient was continued on levofloxacin for significant i mprovement. When he left, he was feeling much better. The patient was sent home with doxycycline fo r 3 more days and he finished the course of Tamiflu. The patient and family voiced understanding. CONDITION ON DISCHARGE: Stable. DISPOSITION: To home. DISCHARGE MEDICATIONS: Valsartan 160 p.o. daily, ferrous sulfate 325 daily, aspirin 81 mg daily, Pro tonix 40 p.o. b.i.d., metformin 1000 mg p.o. b.i.d., doxycycline 100 mg p.o. b.i.d. for 3 more days, carvedilol 25 mg p.o. b.i.d., Januvia 100 mg p.o. daily. DISCHARGE FOLLOWUP: Follow up with primary care physician in 1 week. The patient will continue his home medications and will add doxycycline 100 p.o. b.i.d. for 3 more da ys.
== END 2017-10-01 14:36 | disposition home or self-care (01) | DRG 193 ==
LOC: ERS 09:14 → ERHOLD 12:39 → T4-B 15:06
PROVIDERS: ADMIT Internal Medicine; ATTEND Internal Medicine
DX: J10.00 Influenza due to other identified influenza virus with unspecified type of pneumonia (principal); J96.01 Acute respiratory failure with hypoxia; E11.9 Type 2 diabetes mellitus without complications; D64.9 Anemia, unspecified; A09 Infectious gastroenteritis and colitis, unspecified; E78.5 Hyperlipidemia, unspecified; I10 Essential (primary) hypertension; N20.0 Calculus of kidney; I25.10 Atherosclerotic heart disease of native coronary artery without angina pectoris; I25.2 Old myocardial infarction; Z79.82 Long term (current) use of aspirin; Z85.01 Personal history of malignant neoplasm of esophagus; Z87.891 Personal history of nicotine dependence; Z82.49 Family history of ischemic heart disease and other diseases of the circulatory system; Z84.1 Family history of disorders of kidney and ureter
CPT/HCPCS: 36415; 36416; 71010; 80048; 80053; 81003; 81015; 83605; 85025; 87040; 87045; 87046; 87070; 87086; 87205; 87324; 87449; 87899; 93306; 94640; 96365; 96367; J0360; J0456; J0696; J1650; J1956; J7050; J7620

== ENCOUNTER 2018-02-07 08:38 | Outpatient (CLI) | payer MEDICARE ==
--- NOTE | 2018-02-07 11:32 | CT ---
CT OF CHEST AND ABDOMEN AND PELVIS PERFORMED WITH INTRAVENOUS CONTRAST ENHANCEMENT: Date: 02/07/18 HISTORY: Follow-up esophageal carcinoma. COMPARISON: 06/24/17 CT of chest. 04/19/17 CT of abdomen and pelvis. FINDINGS: On the previous examination, there is some tree-in-bud opacity seen in the left lower lobe. This has resolved, but there is now a slightly more nodular opacity seen in the basal segment of the left low er lobe. This could represent nodular infiltrate, but a mass is not excluded. There is some more line ar parenchymal change in the right base which appears to be related to scar. No pleural effusions are identified. No significant mediastinal, hilar, or axillary adenopathy. There is what appears to have been a gastr ic pull-up procedure performed related to patient's history of esophageal carcinoma. CT of abdomen was performed with IV contrast enhancement. The liver and spleen are unremarkable in ap pearance. The pancreas is atrophic. Increased attenuation of the gallbladder lumen consistent with sm all stones or sludge. Right and left adrenal glands are normal in appearance. Right and left kidneys are normal in size and not obstructed. There is a lower pole nonobstructing right renal calculus present which actually may represent two adjacent calculi, which in aggregate measure approximately 8.0 mm. These appear slight ly enlarged as compared to the previous exam. The left ureteral calculus is no longer present. There is no significant periaortic or mesenteric lymphadenopathy seen. CT of pelvis was performed with contrast enhancement. No adenopathy, mass, or free fluid. Review of osseous structures show arthritic changes of the spine and hips. IMPRESSION: 1. Postoperative changes of the distal esophagus with gastric pull-up. 2. Nodular opacity within the left lower lobe developing since the previous examination. It measures approximately 15 mm in average dimension. I would favor that this represents a nodular infiltrate, b ut a mass is not definitely excluded. Follow-up would be required. This is new as compared to the pre vious study. The tree-in-bud opacity seen on that prior examination has resolved. 3. Stable left renal cyst. 4. Nonobstructing lower pole right renal calculi. 5. Sludge or small stones within the gallbladder. POS: [facility]
[2018-02-07] MEDS ORDERED: Iopamidol 370 76% 100 ML VIAL ONE (13:07)
== END 2018-02-07 08:39 | disposition home or self-care (01) ==
LOC: CT 08:38
PROVIDERS: ATTEND Internal Medicine Hematology & Oncology
DX: C15.5 Malignant neoplasm of lower third of esophagus (principal); N28.1 Cyst of kidney, acquired; R91.8 Other nonspecific abnormal finding of lung field; N20.0 Calculus of kidney; Z98.890 Other specified postprocedural states
CPT/HCPCS: 71260; 74177

== ENCOUNTER 2018-04-20 18:49 | Emergency (ER) | payer MEDICARE ==
[2018-04-20] MEDS ORDERED: Ketorolac Tromethamine 30 MG/ML VIAL ONE (20:20)
[2018-04-20] MEDS ORDERED: Cyclobenzaprine 10 MG TAB ONE (20:20)
== END 2018-04-20 21:25 | disposition home or self-care (01) ==
LOC: ERS 18:49
DX: S16.1XXA Strain of muscle, fascia and tendon at neck level, initial encounter (principal); I25.10 Atherosclerotic heart disease of native coronary artery without angina pectoris; E78.5 Hyperlipidemia, unspecified; I25.2 Old myocardial infarction; E11.9 Type 2 diabetes mellitus without complications; I10 Essential (primary) hypertension; Z86.73 Personal history of transient ischemic attack (TIA), and cerebral infarction without residual deficits; Z87.442 Personal history of urinary calculi; Z79.84 Long term (current) use of oral hypoglycemic drugs; Z79.891 Long term (current) use of opiate analgesic; Z79.899 Other long term (current) drug therapy; X58.XXXA Exposure to other specified factors, initial encounter
CPT/HCPCS: 96372; J1885

== ENCOUNTER 2022-03-28 09:58 | Observation (INO) | payer MEDICARE ==
[2022-03-28 10:40] LABS: #Basophils 0.1 thou/uL (0.0-0.2); #Eosinphils 0.2 thou/uL (0.0-0.7); #Lymphocytes 1.2 thou/uL (1.20-3.40); #Monocytes 0.5 thou/uL (0.11-0.59); #Neutrophils 4.1 thou/uL (1.40-6.50); %Basophils 1.1 % (0.0-1.0); %Eosinophils 3.8 % (0.0-10.0); %Lymphocytes 19.4 % (21.0-51.0); %Monocytes 8.9 % (0.0-10.0); %Neutrophils 66.9 % (42.0-75.0); Hemoglobin 13.3 g/dL (14.0-18.0); Mean Corpuscular HGB CONC 32.3 g/dL (32.0-36.0); Mean Corpuscular Hemoglobin 30.4 pg (27.0-31.0); Platelet Count 300 thou/uL (130-400); RBC Distribution Width 11.7 % (11.5-14.5); Red Blood Cell (RBC) Count 4.38 mill/uL (4.70-6.10); White Blood Cell (WBC) Count 6.1 thou/uL (4.8-10.8)
[2022-03-28 11:01] LABS: ALT (SGPT) 108 U/L (8-55); AST (SGOT) 49 U/L (5-34); Albumin 3.9 g/dL (3.4-4.8); Alkaline Phosphatase 114 U/L (40-110); Anion Gap 15 mmol/L (10-20); BUN (Urea Nitrogen) 14 mg/dL (8.4-25.7); Bilirubin, Total 0.7 mg/dL (0.2-1.2); Calc. Creatinine Clearance 0 mL/min (70-130); Calcium 10.7 mg/dL (7.8-10.44); Carbon Dioxide 26 mmol/L (23-31); Chloride 100 mmol/L (98-107); Estimated GFR 71; Globulin 3.2 g/dL (2.4-3.5); Glucose 240 mg/dL (83-110); Lipase 21 U/L (8-78); Potassium 4.3 mmol/L (3.5-5.1); Protein, Total 7.1 g/dL (5.8-8.1); Sodium 137 mmol/L (136-145)
[2022-03-28] MEDS ORDERED: Iopamidol-370 76% 500 ML 1 ML ONE (11:15)
[2022-03-28] MEDS ORDERED: predniSONE 20 MG TAB ONE (11:20)
[2022-03-28] MEDS ORDERED: Albuterol Sulfate 2.5 mg/3 ml Neb ONE (11:20)
[2022-03-28] MEDS ORDERED: Aspirin Chewable 81 MG TAB ONE (11:20)
[2022-03-28] MEDS ORDERED: Albuterol 200 PUFF (6.7GM INHALER) ONE (12:08)
[2022-03-28] MEDS ORDERED: Albuterol 200 PUFF (6.7GM INHALER) INH SCH (12:15)
[2022-03-28 14:38] LABS: Troponin I Less than 0.010 ng/mL (< 0.028)
[2022-03-28] MEDS ORDERED: Acetaminophen 325 MG TAB PO PRN (14:41)
[2022-03-28] MEDS ORDERED: Ondansetron ODT 4 MG TAB PO PRN (14:41)
[2022-03-28] MEDS ORDERED: Dextrose 5% in Water 1,000 ML IV PRN (14:43)
[2022-03-28] MEDS ORDERED: HumaLOG 300 UNITS/3 ML VIAL SC PRN (14:43)
[2022-03-28] MEDS ORDERED: Dextrose 50% Abboject 50 ML SYRINGE SLOW IVP PRN (14:43)
[2022-03-28] MEDS ORDERED: Benzonatate 100 MG CAP PO PRN (14:44)
[2022-03-28] MEDS ORDERED: Pantoprazole 40 MG VIAL IVP SCH (14:45)
[2022-03-28] MEDS ORDERED: hydrALAZINE 20 MG/ML VIAL SLOW IVP PRN (14:46)
[2022-03-28] MEDS ORDERED: Electrolyte Replacement Protocol 1 EACH FS SCH (15:00)
[2022-03-28 17:34] LABS: CRP (Inflammatory) Less than 0.50 mg/dL (= or < 0.5); Magnesium 1.7 mg/dL (1.6-2.6)
[2022-03-28 17:38] LABS: Troponin I Less than 0.010 ng/mL (< 0.028)
[2022-03-28 17:43] VITALS: BMI 30.2
[2022-03-28] MEDS: Albuterol 200 PUFF (6.7GM INHALER) INH SCH ×2 (21:48→23:59)
[2022-03-28] MEDS ORDERED: Melatonin 3 MG TAB PO PRN (23:29)
[2022-03-28] MEDS ORDERED: Magnesium 2 GM/50 ML(in water) 2 GM in Premix Bag 1 BAG IVPB SCH (23:59)
[2022-03-29] MEDS: Albuterol 200 PUFF (6.7GM INHALER) INH SCH ×4 (03:17→15:30)
[2022-03-29 05:26] LABS: ALT (SGPT) 77 U/L (8-55); AST (SGOT) 23 U/L (5-34); Albumin 3.8 g/dL (3.4-4.8); Alkaline Phosphatase 102 U/L (40-110); Anion Gap 16 mmol/L (10-20); BUN (Urea Nitrogen) 15 mg/dL (8.4-25.7); Bilirubin, Total 0.7 mg/dL (0.2-1.2); Calc. Creatinine Clearance 102 mL/min (70-130); Calcium 10.1 mg/dL (7.8-10.44); Carbon Dioxide 24 mmol/L (23-31); Chloride 99 mmol/L (98-107); Estimated GFR 88; Globulin 2.9 g/dL (2.4-3.5); Glucose 268 mg/dL (83-110); Magnesium 1.8 mg/dL (1.6-2.6); Potassium 3.7 mmol/L (3.5-5.1); Protein, Total 6.7 g/dL (5.8-8.1); Sodium 135 mmol/L (136-145)
[2022-03-29] MEDS: HumaLOG 300 UNITS/3 ML VIAL SC PRN ×2 (06:10→10:59)
[2022-03-29 06:19] LABS: Band 4 % (5-11); Hemoglobin 12.5 g/dL (14.0-18.0); Lymphocytes 10 % (21-51); MDiff Complete? YES; Mean Corpuscular HGB CONC 31.9 g/dL (32.0-36.0); Mean Corpuscular Hemoglobin 29.8 pg (27.0-31.0); Mean Corpuscular Volume 93.5 fL (78.0-98.0); Mean Platelet Volume 7.1 fL (7.4-10.4); Monocytes 5 % (0-10); Neutrophil 81 % (42-75); Platelet Count 320 thou/uL (130-400); RBC Distribution Width 11.7 % (11.5-14.5)
[2022-03-29 07:34] VITALS: TEMP 97.8
[2022-03-29] MEDS ORDERED: Dexamethasone 4 MG TAB PO SCH (08:00)
[2022-03-29] MEDS ORDERED: Magnesium 2 GM/50 ML(in water) 2 GM in Premix Bag 1 BAG IVPB SCH (08:00)
[2022-03-29] MEDS ORDERED: Ascorbic Acid 500 mg Chewable Tablet PO SCH (09:00)
[2022-03-29] MEDS ORDERED: Cholecalciferol (Vitamin D3) 400 UNITS TAB PO SCH (09:00)
[2022-03-29] MEDS ORDERED: Aspirin 81 mg Enteric Coated Tablet PO SCH (09:00)
[2022-03-29] MEDS ORDERED: Zinc Sulfate 220 MG CAP PO SCH (09:00)
[2022-03-29] MEDS ORDERED: Enoxaparin Sodium 40 MG/0.4 ML SYRINGE SC SCH (09:00)
[2022-03-29 11:05] VITALS: BP 114/64
== END 2022-03-29 15:40 | disposition home or self-care (01) ==
LOC: ERS 09:58 → 2SW 13:40
PROVIDERS: ADMIT Internal Medicine; ATTEND Internal Medicine
DX: U07.1 COVID-19 (principal); J96.01 Acute respiratory failure with hypoxia; E87.1 Hypo-osmolality and hyponatremia; I10 Essential (primary) hypertension; E78.5 Hyperlipidemia, unspecified; E11.9 Type 2 diabetes mellitus without complications; I25.10 Atherosclerotic heart disease of native coronary artery without angina pectoris; I25.2 Old myocardial infarction; F17.290 Nicotine dependence, other tobacco product, uncomplicated; R74.01 Elevation of levels of liver transaminase levels; I08.3 Combined rheumatic disorders of mitral, aortic and tricuspid valves; Z85.01 Personal history of malignant neoplasm of esophagus; Z86.73 Personal history of transient ischemic attack (TIA), and cerebral infarction without residual deficits; Z79.82 Long term (current) use of aspirin; Z79.84 Long term (current) use of oral hypoglycemic drugs; Z79.899 Other long term (current) drug therapy
CPT/HCPCS: 71045; 71275; 80053; 82962 ×2; 83690; 83735 ×2; 84484 ×2; 85025; 86140; 93005; 93306; 94760; 96372; 96374; 96376; 99285; G0378 ×3; 36415; 36416; 84443; J1650; J3475; J7512; J7611; J8540; Q9967

== ENCOUNTER 2022-04-05 18:36 | Emergency (ER) | payer MEDICARE ==
[2022-04-05 19:31] LABS: #Basophils 0.1 thou/uL (0.0-0.2); #Eosinphils 0.1 thou/uL (0.0-0.7); #Lymphocytes 1.3 thou/uL (1.20-3.40); #Monocytes 0.9 thou/uL (0.11-0.59); #Neutrophils 10.7 thou/uL (1.40-6.50); %Basophils 0.8 % (0.0-1.0); %Eosinophils 0.6 % (0.0-10.0); %Lymphocytes 10.2 % (21.0-51.0); %Monocytes 6.6 % (0.0-10.0); %Neutrophils 81.7 % (42.0-75.0); Hemoglobin 12.4 g/dL (14.0-18.0); Mean Corpuscular HGB CONC 33.1 g/dL (32.0-36.0); Mean Corpuscular Hemoglobin 30.8 pg (27.0-31.0); Mean Corpuscular Volume 93.1 fL (78.0-98.0); Mean Platelet Volume 7.1 fL (7.4-10.4); Platelet Count 501 thou/uL (130-400); RBC Distribution Width 12.2 % (11.5-14.5); Red Blood Cell (RBC) Count 4.03 mill/uL (4.70-6.10); White Blood Cell (WBC) Count 13.1 thou/uL (4.8-10.8)
[2022-04-05 20:00] LABS: ALT (SGPT) 47 U/L (8-55); AST (SGOT) 17 U/L (5-34); Albumin 3.7 g/dL (3.4-4.8); Alkaline Phosphatase 107 U/L (40-110); Anion Gap 12 mmol/L (10-20); BUN (Urea Nitrogen) 27 mg/dL (8.4-25.7); Bilirubin, Total 0.6 mg/dL (0.2-1.2); Calc. Creatinine Clearance 0 mL/min (70-130); Carbon Dioxide 25 mmol/L (23-31); Chloride 105 mmol/L (98-107); Estimated GFR 77; Globulin 2.4 g/dL (2.4-3.5); Glucose 228 mg/dL (83-110); Lipase 42 U/L (8-78); Potassium 4.4 mmol/L (3.5-5.1); Protein, Total 6.1 g/dL (5.8-8.1)
[2022-04-05 20:11] LABS: Bilirubin Negative (Negative); Blood, Urine 2+ (Negative); Clarity Clear (Clear); Glucose, Urine (Dipstick) Greater than 1000 mg/dL (Negative); Ketone, Urine Negative (Negative); Leukocyte 500 Leu/uL (Negative); Nitrite Negative (Negative); Protein, Urine (Dipstick) 10 mg/dL (Neg-Trace); RBC/HPF 21-50 HPF (0-3); Squamous Epithelial 0-3 HPF (0-3); WBC/HPF Greater than 50 HPF (0-3); Yeast-Budding Rare HPF (None Seen)
[2022-04-05 20:12] LABS: Bacteria/HPF 1+ HPF (None Seen)
[2022-04-05 20:32] LABS: Sodium 138 mmol/L (136-145)
== END 2022-04-05 20:19 | disposition home or self-care (01) ==
LOC: ERS 18:36
DX: R53.81 Other malaise (principal); U09.9 Post COVID-19 condition, unspecified; N39.0 Urinary tract infection, site not specified; I25.10 Atherosclerotic heart disease of native coronary artery without angina pectoris; E11.9 Type 2 diabetes mellitus without complications; Z87.891 Personal history of nicotine dependence; Z79.899 Other long term (current) drug therapy; Z79.84 Long term (current) use of oral hypoglycemic drugs; Z79.82 Long term (current) use of aspirin
CPT/HCPCS: 36415; 71045; 80053; 81003; 81015; 83690; 83880; 84484; 85025; 93005

== ENCOUNTER 2022-04-12 15:21 | Outpatient (CLI) | payer MEDICARE | END 2022-04-12 15:22 | disposition home or self-care (01) | LOC: ULT 15:21 | PROVIDERS: ATTEND Family Medicine | DX: R60.0 Localized edema (principal) | CPT/HCPCS: 93970 ==

== ENCOUNTER 2022-04-13 16:05 | Outpatient (CLI) | payer MEDICARE | END 2022-04-13 16:06 | disposition home or self-care (01) | LOC: BICRAD 16:05 | PROVIDERS: ATTEND Family Medicine | DX: R07.9 Chest pain, unspecified (principal) | CPT/HCPCS: 71046 ==

== ENCOUNTER 2022-05-08 14:52 | Outpatient (CLI) | payer MEDICARE | END 2022-05-08 14:53 | disposition home or self-care (01) | LOC: BICCT 14:52 | PROVIDERS: ATTEND Family Medicine | DX: R41.3 Other amnesia (principal) | CPT/HCPCS: 70450 ==

== ENCOUNTER 2022-08-17 20:50 | Observation (INO) | payer MEDICARE ==
[2022-08-17] MEDS ORDERED: Aspirin Chewable 81 MG TAB ONE ×2 (21:23)
[2022-08-17 21:42] LABS: #Basophils 0.1 thou/uL (0.0-0.2); #Eosinphils 0.3 thou/uL (0.0-0.7); #Lymphocytes 1.7 thou/uL (1.20-3.40); #Monocytes 0.6 thou/uL (0.11-0.59); #Neutrophils 4.9 thou/uL (1.40-6.50); %Eosinophils 3.9 % (0.0-10.0); %Lymphocytes 22.2 % (21.0-51.0); %Monocytes 8.2 % (0.0-10.0); %Neutrophils 64.6 % (42.0-75.0); Hemoglobin 11.3 g/dL (14.0-18.0); Mean Corpuscular HGB CONC 30.5 g/dL (32.0-36.0); Mean Corpuscular Volume 85.1 fl (78.0-98.0); Mean Platelet Volume 7.3 fL (7.4-10.4); Platelet Count 392 10x3/uL (130-400); RBC Distribution Width 13.7 % (11.5-14.5); Red Blood Cell (RBC) Count 4.37 mill/uL (4.70-6.10); White Blood Cell (WBC) Count 7.6 10x3/uL (4.8-10.8)
[2022-08-17 21:56] LABS: ALT (SGPT) 52 U/L (8-55); AST (SGOT) 33 U/L (5-34); Alkaline Phosphatase 118 U/L (40-110); Anion Gap 12 mmol/L (10-20); BUN (Urea Nitrogen) 20 mg/dL (8.4-25.7); Bilirubin, Total 0.5 mg/dL (0.2-1.2); Calc. Creatinine Clearance 0 mL/min (70-130); Carbon Dioxide 29 mmol/L (23-31); Chloride 96 mmol/L (98-107); Estimated GFR 68; Glucose 227 mg/dL (83-110); Lipase 27 U/L (8-78); Potassium 4.1 mmol/L (3.5-5.1); Sodium 133 mmol/L (136-145)
[2022-08-17] MEDS ORDERED: Ondansetron ODT 4 MG TAB SL PRN (23:00)
[2022-08-17] MEDS ORDERED: Ondansetron PF 4 MG/2 ML Vial IVP PRN (23:00)
[2022-08-17] MEDS ORDERED: Sodium Chloride 0.9% 1,000 ML IV SCH (23:00)
[2022-08-17] MEDS ORDERED: Acetaminophen 325 MG TAB PO PRN (23:00)
[2022-08-17 23:17] LABS: Bilirubin Negative (Negative); Blood, Urine Negative (Negative); Clarity Clear (Clear); Glucose, Urine (Dipstick) Greater than 1000 mg/dL (Negative); Ketone, Urine Negative (Negative); Leukocyte Negative Leu/uL (Negative); Nitrite Negative (Negative); Protein, Urine (Dipstick) Negative (Neg-Trace); Specific Gravity, Urine 1.004 (1.002-1.036); Urobilinogen Normal mg/dL (Less than 2); pH, Urine 6.5 (5.0-9.0)
[2022-08-18 00:07] LABS: Potassium, Urine 13.6 mmol/L; Sodium, Urine Less than 20 mmol/L (Not Available)
[2022-08-18] MEDS ORDERED: Dextrose 5% in Water 1,000 ML IV PRN (00:28)
[2022-08-18] MEDS ORDERED: Dextrose 50% Abboject 50 ML SYRINGE SLOW IVP PRN (00:28)
[2022-08-18] MEDS ORDERED: Insulin Regular 300 UNITS/3 ML VIAL SC PRN ×2 (00:28)
[2022-08-18 01:21] LABS: Troponin I Less than 0.010 ng/mL (< 0.028)
[2022-08-18 04:19] LABS: #Basophils 0.1 thou/uL (0.0-0.2); #Eosinphils 0.3 thou/uL (0.0-0.7); #Lymphocytes 1.7 thou/uL (1.20-3.40); #Monocytes 0.6 thou/uL (0.11-0.59); #Neutrophils 4.1 thou/uL (1.40-6.50); %Basophils 0.9 % (0.0-1.0); %Lymphocytes 25.3 % (21.0-51.0); %Monocytes 8.3 % (0.0-10.0); %Neutrophils 61.6 % (42.0-75.0); Hemoglobin 10.8 g/dL (14.0-18.0); Mean Corpuscular HGB CONC 30.9 g/dL (32.0-36.0); Mean Corpuscular Hemoglobin 26.3 pg (27.0-31.0); Mean Corpuscular Volume 85.1 fl (78.0-98.0); Platelet Count 357 10x3/uL (130-400); RBC Distribution Width 13.8 % (11.5-14.5); Red Blood Cell (RBC) Count 4.11 mill/uL (4.70-6.10); White Blood Cell (WBC) Count 6.6 10x3/uL (4.8-10.8)
[2022-08-18 04:51] LABS: Anion Gap 12 mmol/L (10-20); BUN (Urea Nitrogen) 17 mg/dL (8.4-25.7); Calc. Creatinine Clearance 0 mL/min (70-130); Calcium 9.8 mg/dL (7.8-10.44); Carbon Dioxide 27 mmol/L (23-31); Chloride 102 mmol/L (98-107); Estimated GFR 88; Glucose 214 mg/dL (83-110); Sodium 137 mmol/L (136-145)
[2022-08-18] MEDS ORDERED: Aspirin 325 MG TAB PO SCH (08:00)
[2022-08-18] MEDS ORDERED: Aspirin 325 MG TAB ONE (08:13)
[2022-08-18] MEDS ORDERED: Regadenoson 0.4 MG/5 ML SYRINGE ONE (09:41)
== END 2022-08-18 17:09 | disposition home or self-care (01) ==
LOC: ERS 20:50 → ERHOLD 22:00
PROVIDERS: ADMIT Internal Medicine; ATTEND Internal Medicine
DX: R07.89 Other chest pain (principal); E11.9 Type 2 diabetes mellitus without complications; E87.1 Hypo-osmolality and hyponatremia; I10 Essential (primary) hypertension; I25.10 Atherosclerotic heart disease of native coronary artery without angina pectoris; F03.90 Unspecified dementia, unspecified severity, without behavioral disturbance, psychotic disturbance, mood disturbance, and anxiety; I25.2 Old myocardial infarction; M19.90 Unspecified osteoarthritis, unspecified site; E78.00 Pure hypercholesterolemia, unspecified; I42.9 Cardiomyopathy, unspecified; Z85.01 Personal history of malignant neoplasm of esophagus; Z86.16 Personal history of COVID-19; Z86.73 Personal history of transient ischemic attack (TIA), and cerebral infarction without residual deficits; Z87.891 Personal history of nicotine dependence; Z79.82 Long term (current) use of aspirin; Z79.84 Long term (current) use of oral hypoglycemic drugs; Z79.899 Other long term (current) drug therapy
CPT/HCPCS: 71045; 78452; 80048; 80053; 81003; 82436; 82962; 83690; 83880; 84133; 84300; 84484 ×3; 85025 ×2; 87086; 93017; 99285; A9500; 36415; 36416; 93005; J2785; J7050

== ENCOUNTER 2023-08-01 07:28 | Outpatient (CLI) | payer MEDICARE | END 2023-08-01 07:29 | disposition home or self-care (01) | LOC: NM 07:28 | PROVIDERS: ATTEND Physician Assistant Medical | DX: K21.9 Gastro-esophageal reflux disease without esophagitis (principal); R10.13 Epigastric pain; R19.8 Other specified symptoms and signs involving the digestive system and abdomen | CPT/HCPCS: 78264; A9541 ==

== ENCOUNTER 2023-10-28 07:28 | Outpatient (CLI) | payer MEDICARE ==
[2023-10-28] MEDS ORDERED: Iopamidol 370 76% 100 ML VIAL ONE (08:26)
== END 2023-10-28 07:29 | disposition home or self-care (01) ==
LOC: BICCT 07:28
PROVIDERS: ATTEND Physician Assistant Medical
DX: K21.9 Gastro-esophageal reflux disease without esophagitis (principal); R10.13 Epigastric pain; N20.0 Calculus of kidney; N28.1 Cyst of kidney, acquired; K57.30 Diverticulosis of large intestine without perforation or abscess without bleeding; N28.89 Other specified disorders of kidney and ureter; K82.8 Other specified diseases of gallbladder; Z98.890 Other specified postprocedural states
CPT/HCPCS: 74177

== ENCOUNTER 2024-02-04 15:58 | Outpatient (CLI) | payer MEDICARE | END 2024-02-04 15:59 | disposition home or self-care (01) | LOC: BICCT 15:58 | PROVIDERS: ATTEND Psychiatry & Neurology Neurology | DX: F03.90 Unspecified dementia, unspecified severity, without behavioral disturbance, psychotic disturbance, mood disturbance, and anxiety (principal) | CPT/HCPCS: 70450 ==

== ENCOUNTER 2024-10-14 15:27 | Emergency (ER) | payer MEDICARE ==
[2024-10-14 16:36] LABS: ALT (SGPT) 66 U/L (8-55); AST (SGOT) 30 U/L (5-34); Albumin 3.3 g/dL (3.4-4.8); Alkaline Phosphatase 88 U/L (40-110); Anion Gap 12 mmol/L (10-20); BUN (Urea Nitrogen) 13 mg/dL (8.4-25.7); Bilirubin, Total 0.5 mg/dL (0.2-1.2); Calc. Creatinine Clearance 0 mL/min (70-130); Calcium 9.4 mg/dL (7.8-10.44); Carbon Dioxide 27 mmol/L (23-31); Chloride 105 mmol/L (98-107); Estimated GFR 86; Globulin 2.7 g/dL (2.4-3.5); Glucose 100 mg/dL (83-110); Potassium 4.4 mmol/L (3.5-5.1); Sodium 140 mmol/L (136-145)
[2024-10-14] MEDS ORDERED: Aspirin Chewable 81 MG TAB ONE (16:41)
[2024-10-14 16:44] LABS: Troponin I Less than 0.010 ng/mL (< 0.028)
[2024-10-14 17:01] LABS: #Basophils 0.09 10x3/uL (0.0-0.2); %Basophils 1.1 % (0.0-1.0); %Eosinophils 6.8 % (0.0-10.0); %Lymphocytes 17.2 % (21.0-51.0); %Neutrophils 67.7 % (42.0-75.0); Hematocrit 35.1 % (42.0-52.0); Hemoglobin 11.3 g/dL (14.0-18.0); Mean Corpuscular HGB CONC 32.2 g/dL (32.0-36.0); Mean Corpuscular Hemoglobin 29.3 pg (27.0-31.0); Mean Corpuscular Volume 90.9 fL (78.0-98.0); Mean Platelet Volume 9.2 fL (7.4-10.4); Platelet Count 300 10x3/uL (130-400); Red Blood Cell (RBC) Count 3.86 mill/uL (4.70-6.10)
[2024-10-14] MEDS ORDERED: Lidocaine Viscous Sol 2% 15 ml UD Cup ONE (17:38)
[2024-10-14] MEDS ORDERED: Mag-Al 1200 mg/1200 mg/30 ML UDCUP ONE ×2 (17:38→17:39)
== END 2024-10-14 17:45 | disposition home or self-care (01) ==
LOC: ERS 15:27
DX: E11.43 Type 2 diabetes mellitus with diabetic autonomic (poly)neuropathy (principal); K31.84 Gastroparesis; R07.9 Chest pain, unspecified; I25.10 Atherosclerotic heart disease of native coronary artery without angina pectoris; E78.5 Hyperlipidemia, unspecified; I10 Essential (primary) hypertension; Z79.84 Long term (current) use of oral hypoglycemic drugs; Z86.73 Personal history of transient ischemic attack (TIA), and cerebral infarction without residual deficits; Z79.82 Long term (current) use of aspirin; Z79.899 Other long term (current) drug therapy
CPT/HCPCS: 36415; 71045; 80053; 84484; 85025; 93005

== ENCOUNTER 2024-11-09 08:07 | Outpatient (CLI) | payer OTHER | END 2024-11-09 08:08 | disposition home or self-care (01) | LOC: BICULT 08:07 | PROVIDERS: ATTEND Physician Assistant Medical | DX: K21.9 Gastro-esophageal reflux disease without esophagitis (principal); E11.43 Type 2 diabetes mellitus with diabetic autonomic (poly)neuropathy; K31.84 Gastroparesis; R10.13 Epigastric pain; R79.89 Other specified abnormal findings of blood chemistry; K80.20 Calculus of gallbladder without cholecystitis without obstruction | CPT/HCPCS: 76705 ==

== ENCOUNTER 2025-08-05 09:33 | Outpatient (CLI) | payer OTHER ==
[2025-08-05 10:19] LABS: Estimated GFR - POC 67.0
== END 2025-08-05 09:34 | disposition home or self-care (01) ==
LOC: CT 09:33
PROVIDERS: ATTEND Thoracic Surgery (Cardiothoracic Vascular Surgery)
DX: I73.9 Peripheral vascular disease, unspecified (principal); I77.1 Stricture of artery; N20.0 Calculus of kidney; R93.421 Abnormal radiologic findings on diagnostic imaging of right kidney; R93.422 Abnormal radiologic findings on diagnostic imaging of left kidney; K86.89 Other specified diseases of pancreas; N28.1 Cyst of kidney, acquired; K57.30 Diverticulosis of large intestine without perforation or abscess without bleeding; Z98.890 Other specified postprocedural states
CPT/HCPCS: 36415; 75635; 82565